=== PATIENT | female | born 1965 | race Caucasian/White ===

== ENCOUNTER → 2016-04-10 | Outpatient (CLI) | payer OTHER ==
[2016-04-10 13:11] LABS: EKG EKG PERFORMED
--- NOTE | 2016-04-10 13:36 | XR ---
EXAMINATION TYPE: XR chest 2V DATE OF EXAM: 04/10/2016 1:00 PM HISTORY: Cough and chest tightness. REFERENCE: Previous examination dated 01/07/2016. FINDINGS: The lungs are clear. Pleural spaces are clear. Heart size is normal. IMPRESSION: NORMAL CHEST.
[2016-04-10 13:43] LABS: Basophils # (A) 0.1 k/uL (0-0.2); Basophils % (A) 1 %; CH 27.9; CHCM 32.7; Eosinophils # (A) 0.3 k/uL (0-0.7); Eosinophils % (A) 3 %; HCT 38.7 % (34.0-46.0); HDW 3.07; HGB 12.7 gm/dL (11.4-16.0); Luc # (Auto) 0.15; Luc % (Auto) 2; Lymphocytes # (A) 2.2 k/uL (1.0-4.8); Lymphocytes % (A) 22 %; MCH 28.1 pg (25.0-35.0); MCHC 32.8 g/dL (31.0-37.0); MCV 85.7 fL (80.0-100.0); Mean Platelet Volume 9.2; Monocytes # (A) 0.6 k/uL (0-1.0); Monocytes % (A) 6 %; Neutrophils # (A) 6.6 k/uL (1.3-7.7); Neutrophils % (A) 67 %; RBC 4.51 m/uL (3.80-5.40); RDW 15.6 % (11.5-15.5); WBC 9.8 k/uL (3.8-10.6); WBC (Perox) 10.21
[2016-04-10 14:03] LABS: Cholesterol 168 mg/dL (<200); HDL Cholesterol 36 mg/dL (40-60); Triglycerides 367 mg/dL (<150)
[2016-04-10 14:09] LABS: Hemoglobin A1C 8.8 % (4.2-6.1)
== END | disposition home or self-care (01) ==
LOC: RADXRMAIN 12:46
PROVIDERS: ATTEND Nurse Practitioner Family
DX: R05 Cough (principal); I48.0 Paroxysmal atrial fibrillation; R00.2 Palpitations; G47.39 Other sleep apnea; H69.93 Unspecified Eustachian tube disorder, bilateral; J18.8 Other pneumonia, unspecified organism; R01.1 Cardiac murmur, unspecified
CPT/HCPCS: 36415; 71020; 80061; 83036; 84439; 84443; 84484; 85025; 93005

== ENCOUNTER → 2016-09-16 | Outpatient (CLI) | payer OTHER ==
--- NOTE | 2016-09-17 12:04 | XR ---
Left knee HISTORY: Left knee pain, fall 3 views of the left knee Comparison to previous left knee dated 10/13/2014 Bone mineralization, joint spaces and alignment are maintained. No sizable joint effusion. Minimal ma rginal spurring medial compartment suggestive of osteoarthritis. IMPRESSION: No acute fracture or dislocation.
== END ==
LOC: RADXRMAIN 18:44
PROVIDERS: ATTEND Family Medicine
DX: M25.562 Pain in left knee (principal); M25.462 Effusion, left knee

== ENCOUNTER → 2017-06-26 | Outpatient (CLI) | payer OTHER ==
[2017-06-26 12:39] LABS: HCT 30.8 % (34.0-46.0); HGB 9.9 gm/dL (11.4-16.0); Hypochromasia Marked; MCHC 32.1 g/dL (31.0-37.0); MCV 84.2 fL (80.0-100.0); Mean Platelet Volume 9.2; Platelet Count 253 k/uL (150-450); Poikilocytosis Slight; RBC 3.66 m/uL (3.80-5.40); RDW 14.5 % (11.5-15.5); WBC 7.3 k/uL (3.8-10.6)
[2017-06-26 13:01] LABS: Anion Gap 14 mmol/L; Blood Urea Nitrogen 19 mg/dL (7-17); Carbon Dioxide 24 mmol/L (22-30); Chloride 106 mmol/L (98-107); Potassium 4.4 mmol/L (3.5-5.1); Sodium 144 mmol/L (137-145)
== END | disposition home or self-care (01) ==
LOC: LABPAT 12:11
PROVIDERS: ATTEND Internal Medicine Cardiovascular Disease
DX: Z01.812 Encounter for preprocedural laboratory examination (principal); R07.9 Chest pain, unspecified
CPT/HCPCS: 36415; 80051; 82565; 84520; 85027

== ENCOUNTER 2017-07-01 10:54 | Day surgery (SDC) | payer OTHER ==
[2017-06-19 13:51] VITALS: BMI 39.9
[~2017-07-01 10:54] MED LIST: ALPRAZolam 0.25 MG TAB PO PRN; ALPRAZolam 0.5 MG TAB PO PRN; ASPIRIN 325 MG TAB PO STA; ATORVASTATIN 80 MG TAB PO STA; NITROGLYCERIN SL TABS 0.4 MG TAB SUBLINGUAL PRN; SODIUM CHLORIDE 0.9% 1,000 ML in EMPTY BAG 1 BAG IV ONE
[2017-07-01 11:31] LABS: Glucose,Whole Blood 178 mg/dL (75-99)
[2017-07-01] MEDS ORDERED: LIDOCAINE 2% INJ 20 MG/ML (20 ML MDV) ONE (12:29)
[2017-07-01] MEDS ORDERED: SODIUM CHLORIDE 0.9% 1,000 ML IV ONE (12:29)
[2017-07-01] MEDS ORDERED: MIDAZOLAM 2 MG/2 ML VIAL ONE ×2 (12:48→13:24)
[2017-07-01] MEDS ORDERED: LIDOCAINE 2% INJ 20 MG/ML SQ ONE (12:49)
[2017-07-01] MEDS: MIDAZOLAM 2 MG/2 ML VIAL IV ONE ×2 (12:49→12:51)
[2017-07-01] MEDS ORDERED: fentaNYL (PF) 50 MCG/ML 2 ML AMP IV ONE (12:49)
[2017-07-01] MEDS ORDERED: BIVALIRUDIN 250 MG in SODIUM CHLORIDE 0.9% 50 ML IV ONE (13:12)
[2017-07-01] MEDS ORDERED: BIVALIRUDIN BOLUS 250 MG/50 ML IV ONE (13:12)
--- NOTE | 2017-07-01 13:22 | P.PCN ---
Date of Procedure: 07/01/17 Preoperative Diagnosis: Crescendo angina Postoperative Diagnosis: Significant lesion involving the PDA branch. Collaterals from the right to the septal branch of the LAD which are chronic Procedure(s) Performed: Left heart catheterization without left ventriculography Description of Procedure: HISTORY: This is a 52-year-old female with history of hypertension, diabetes and hypercholesterolemia who has been experiencing exertional chest pain radiating to both arms, relieved with rest with exertional activities. Patient has to take the 4 nitroglycerin were the last 2 weeks. In view of those increasing chest pains patient is advised to have cardiac catheterization for definitive diagnosis. Patient is fully aware of the risks and benefits of the procedure. CONSENT:I have discussed the risks, benefits and alternative therapies for the above-mentioned procedure and for both sedation/analgesia as well as necessary blood product administration, if indicated, as they pertain to this patient. The patient has indicated understanding and acceptance of the risks and procedures discussed. PROCEDURE: Patient was brought to the lab in a fasting state. Patient was given some IV sedation. The right groin is infiltrated with lidocaine and right femoral artery was entered using Seldinger technique. A 6-Azeri catheter was left in place and selective coronary arteriography and left ventriculography was performed. Patient tolerated the procedure well. Femoral angiogram was performed and Angio-Seal was applied for hemostasis. No immediate complications were noted and patient was transferred to [facility] in a stable condition Conscious Sedation: Versed 2mg Fentanyl 25 g Duration 22minutes HEMODYNAMICS: The aortic pressure is 140/70. Left ventricle end-diastolic pressure is 20-22. There was no gradient across the aortic valve SELECTIVE CORONARY ARTERIOGRAPHY: LEFT MAIN: Normal length and patent. THE LEFT ANTERIOR DESCENDING CORONARY ARTERY: This is a moderate caliber vessel giving rise to good-sized diagonal branch. The LAD has ectatic changes in the midportion and also mild diffuse disease in the midportion after the origin of the diagonal branch. The diagonal branch is a good caliber vessel free of any occlusive disease. This seemed to be total occlusion of the septal branch which is being collateralized from right coronary artery. THE LEFT CIRCUMFLEX AND IS CORONARY ARTERY: This is a moderate caliber vessel and nondominant. Gives rise to small OM branch. There is mild disease in the midportion THE RIGHT CORONARY ARTERY: This is a dominant vessel giving rise to good-sized PLV and PDA branch. The PDA has 2 side branches. One of the branches has about 80% stenosis. This seemed to progression compared to the previous stent studies. LEFT VENTRICULOGRAPHY: Not performed FINAL IMPRESSION: Critical lesion involving the PDA. Total occlusion of the septal branch of the LAD which is being collateralized. This is chronic. PLAN: Stent placement of the PDA branch being done by Dr. Dennis PROGNOSIS: Fair
[2017-07-01] MEDS ORDERED: MIDAZOLAM 2 MG/2 ML VIAL IV ONE (13:25)
[2017-07-01] MEDS: NITROGLYCERIN 1000MCG/10ML SYRINGE INTRACORON ONE ×2 (13:25→13:33)
[2017-07-01] MEDS ORDERED: IOPAMIDOL-370 125ML BTL INJ ONE (13:34)
[2017-07-01] MEDS ORDERED: IOPAMIDOL-370 100ML BTL INJ ONE (13:35)
[2017-07-01] MEDS ORDERED: CLOPIDOGREL 75 MG TAB PO ONE (13:35)
[2017-07-01] MEDS ORDERED: CLOPIDOGREL 75 MG TAB ONE (13:37)
[2017-07-01] MEDS ORDERED: NITROGLYCERIN SL TABS 0.4 MG TAB SUBLINGUAL PRN ×2 (13:46→13:48)
[2017-07-01] MEDS ORDERED: ACETAMINOPHEN TAB 325 MG TAB PO PRN (13:46)
[2017-07-01] MEDS ORDERED: SUCRALFATE 1 GM TAB PO PRN (13:46)
[2017-07-01] MEDS ORDERED: FLUTICASONE 50MCG/SPRAY NASAL 16GM EA NOSTRIL PRN (13:46)
[2017-07-01] MEDS ORDERED: MAG HYDROX/AL HYDROX/SIMETH 30 ML CUP PO PRN (13:48)
[2017-07-01] MEDS ORDERED: ATROPINE SULFATE 0.1 MG/ML 10ML SYRINGE IV PRN (13:48)
[2017-07-01] MEDS ORDERED: RX INFO: IV CONTRAST WAS GIVEN 1 EACH MISC MISCELLANE PRN (13:48)
[2017-07-01] MEDS ORDERED: ZOLPIDEM 5 MG TAB PO PRN (13:48)
[2017-07-01] MEDS ORDERED: INSULIN LISPRO (For Pump) 100 UNIT/ML VIAL SQ-PUMP SCH (14:00)
[2017-07-01] MEDS ORDERED: SODIUM CHLORIDE 0.9% 1,000 ML IV SCH (14:00)
[2017-07-01 14:13] LABS: Glucose,Whole Blood 128 mg/dL (75-99)
--- NOTE | 2017-07-01 16:11 | PTCA ---
PERCUTANEOUSTRANS CORORONARY ANGIOGRAPHY DATE OF SERVICE: July 01, 2017 PERFORMING PHYSICIAN: Jered Ram MD, residential aide. PROCEDURE PERFORMED: Successful stenting of the PDA branch of the RCA using a 2.5 x 12 mm Promus drug- eluting stent with good angiographic results. INDICATION: This is a pleasant 52-year-old female patient who was experiencing intermittent episodes of chest discomfort concerning for angina. She underwent heart catheterization by Dr. Hilliard and was found to have severe disease involving the PDA branch of the RCA. We recommended proceeding with percutaneous coronary intervention. APPROACH: Right common femoral artery. COMPLICATION: None. LEVEL OF SEDATION: Moderate with sedation length of 34 minutes. PROCEDURE DESCRIPTION: After diagnostic heart catheterization was performed by Dr. Hilliard and after reviewing the angiogram, we decided to pursue with percutaneous coronary intervention. Anticoagulation was initiated using Angiomax. Subsequently I took a JR4 guide and the RCA was engaged. A Whisper wire was used to wire the RCA and the wire was advanced to the PDA branch of the RCA. After that I did PTCA ballooning using 2.0 x 12 mm balloon and subsequently I deployed a 2.5 x 12 mm Promus Premier drug-eluting stent where the stent was positioned under fluoroscopy guidance and deployed under 10 atmospheres for 20 seconds. The following angiogram showed good angiographic results and the procedure was completed without any complication. POSTPROCEDURE MANAGEMENT: 1. Dual anti-platelet therapy. 2. Risk factor modifications. 3. Follow up with the patient. MMODL / IJN: [id number] /
[2017-07-01] MEDS: traMADol 50 MG TAB PO PRN (16:30)
[2017-07-01] MEDS: PROPAFENONE 150 MG TAB PO SCH (20:08)
[2017-07-01] MEDS: METOPROLOL TARTRATE 25 MG TAB PO SCH (20:08)
[2017-07-01] MEDS: PREGABALIN 75 MG CAP PO SCH (20:08)
[2017-07-01] MEDS ORDERED: ATORVASTATIN 10 MG TAB PO SCH (21:00)
[2017-07-01 21:14] LABS: Glucose,Whole Blood 201 mg/dL (75-99)
[2017-07-01 21:27] VITALS: RESP 16
[2017-07-02] MEDS: traMADol 50 MG TAB PO PRN (03:12)
[2017-07-02 05:59] LABS: Basophils % (A) 0 %; Eosinophils # (A) 0.3 k/uL (0-0.7); Eosinophils % (A) 3 %; HCT 29.7 % (34.0-46.0); HGB 9.4 gm/dL (11.4-16.0); Hypochromasia Marked; Lymphocytes # (A) 1.6 k/uL (1.0-4.8); Lymphocytes % (A) 21 %; MCH 26.3 pg (25.0-35.0); MCHC 31.7 g/dL (31.0-37.0); MCV 82.8 fL (80.0-100.0); Mean Platelet Volume 9.6; Monocytes # (A) 0.6 k/uL (0-1.0); Monocytes % (A) 8 %; Neutrophils % (A) 66 %; Platelet Count 208 k/uL (150-450); Poikilocytosis Slight; RBC 3.59 m/uL (3.80-5.40); RDW 14.6 % (11.5-15.5); WBC 7.7 k/uL (3.8-10.6)
[2017-07-02 06:06] LABS: Anion Gap 10 mmol/L; Blood Urea Nitrogen 18 mg/dL (7-17); Calcium 8.7 mg/dL (8.4-10.2); Carbon Dioxide 26 mmol/L (22-30); Chloride 105 mmol/L (98-107); Glucose 159 mg/dL (74-99); Potassium 3.9 mmol/L (3.5-5.1); Sodium 141 mmol/L (137-145)
[2017-07-02 06:31] LABS: Glucose,Whole Blood 171 mg/dL (75-99)
[2017-07-02] MEDS ORDERED: PANTOPRAZOLE 40 MG TABLET PO SCH (07:30)
--- NOTE | 2017-07-02 08:48 | P.DS ---
Providers Date of admission: 07/01/2017 Attending physician: Cristel Hilliard Consults: 07/01/17 13:48 Consult Physician Routine Consulting Provider: [facility] Consult Reason/Comments: Post Interventional patient Do you want consulting provider notified?: Already Contacted Primary care physician: [facility] Course: This 52-year-old female with history of multiple risk factors was admitted to the hospital with the exertional angina which she spent, more frequent requiring nitroglycerin. Cardiac catheterization revealed significant disease involving the PDA. Rest of the coronary system remained stable compared to the previous study. Patient had stent placement of the PDA by Dr. Dennis. Patient tolerated the procedure well. He remained stable overnight. The groin looks soft without any hematoma. Mild ecchymosis noted. Lungs are clear. Heart is regular. Patient will continue current medical therapy. Follow-up in the office in one week. She will stay on the aspirin and Plavix. We'll going to hold Xarelto until patient is seen in the office. I may resume Xarelto in 6 weeks along with aspirin and discontinue Plavix at the time. Rest of the medication to be continued. Plan - Discharge Summary Discharge Rx Participant: No New Discharge Prescriptions: New Clopidogrel [Plavix] 75 mg PO DAILY #90 tab Nitroglycerin Sl Tabs [Nitrostat] 0.4 mg SUBLINGUAL Q5M PRN #30 tab PRN Reason: Chest Pain Continue Lisinopril 40 mg PO DAILY Pantoprazole Sodium [Protonix] 40 mg PO DAILY Ranitidine HCl 150 mg PO DAILY Sucralfate [Carafate] 1 gm PO BID PRN PRN Reason: Nausea Loratadine [Claritin] 10 mg PO DAILY Hydrochlorothiazide [Hydrodiuril] 25 mg PO DAILY Isosorbide Mononitrate ER [Imdur] 60 mg PO DAILY #90 tab Metoprolol Tartrate [Lopressor] 25 mg PO BID Fluticasone Nasal Hyder [Flonase Nasal Hyder] 2 spray EA NOSTRIL DAILY PRN PRN Reason: Congestion INSULIN LISPRO (For Pump) [humaLOG (For Pump)] 0.01 units SQ-PUMP CONTINUOUS Propafenone [Rythmol] 150 mg PO BID Aspirin 81 mg PO DAILY #30 chew Pregabalin [Lyrica] 75 mg PO BID Simvastatin [Zocor] 20 mg PO HS Discontinued traMADol HCL [Ultram] 50 mg PO QID PRN PRN Reason: Pain Nitroglycerin Sl Tabs [Nitrostat] 0.4 mg SUBLINGUAL Q5M PRN #25 tab PRN Reason: Chest Pain Acetaminophen Tab [Tylenol] 650 mg PO Q6HR PRN #0 tab PRN Reason: Fever And/ Or Pain Rivaroxaban [Xarelto] 20 mg PO DAILY Discharge Medication List Lisinopril 40 mg PO DAILY 10/02/15 [History] Pantoprazole Sodium [Protonix] 40 mg PO DAILY 10/02/15 [History] Ranitidine HCl 150 mg PO DAILY 10/02/15 [History] Sucralfate [Carafate] 1 gm PO BID PRN 11/05/15 [History] Hydrochlorothiazide [Hydrodiuril] 25 mg PO DAILY 12/15/15 [History] Loratadine [Claritin] 10 mg PO DAILY 12/15/15 [History] Isosorbide Mononitrate ER [Imdur] 60 mg PO DAILY #90 tab 12/19/15 [Rx] Fluticasone Nasal Hyder [Flonase Nasal Hyder] 2 spray EA NOSTRIL DAILY PRN 01/02 [History] Metoprolol Tartrate [Lopressor] 25 mg PO BID 01/03/16 [History] INSULIN LISPRO (For Pump) [humaLOG (For Pump)] 0.01 units SQ-PUMP CONTINUOUS [History] Propafenone [Rythmol] 150 mg PO BID 01/08/16 [History] Aspirin 81 mg PO DAILY #30 chew 01/10/16 [Rx] Pregabalin [Lyrica] 75 mg PO BID 06/19/17 [History] Simvastatin [Zocor] 20 mg PO HS 07/01/17 [History] Clopidogrel [Plavix] 75 mg PO DAILY #90 tab 07/02/17 [Rx] Nitroglycerin Sl Tabs [Nitrostat] 0.4 mg SUBLINGUAL Q5M PRN #30 tab 07/02/17 [Rx ] Follow up Appointment(s)/Referral(s): Cristel Hilliard MD [STAFF PHYSICIAN] - 1 Week Patient Instructions/Handouts: *Surgery [facility] - After Heart Catheterization - [employer] Executive Instructions, Heart Healthy Diet (DC), Coronary Intravascular Stent Placement (DC)
[2017-07-02 08:56] VITALS: BP 153/72; PULSE 98; TEMP 98.5
[2017-07-02] MEDS: METOPROLOL TARTRATE 25 MG TAB PO SCH (08:57)
[2017-07-02] MEDS: PROPAFENONE 150 MG TAB PO SCH (08:57)
[2017-07-02] MEDS ORDERED: LISINOPRIL 20 MG TAB PO SCH (09:00)
[2017-07-02] MEDS ORDERED: ASPIRIN 81 MG PO SCH (09:00)
[2017-07-02] MEDS ORDERED: ISOSORBIDE MONONITRATE ER 60 MG TAB.ER.24H PO SCH (09:00)
[2017-07-02] MEDS ORDERED: FAMOTIDINE 20 MG TAB PO SCH (09:00)
[2017-07-02] MEDS ORDERED: LORATADINE 10 MG TAB PO SCH (09:00)
[2017-07-02] MEDS ORDERED: HYDROCHLOROTHIAZIDE 25 MG TAB PO SCH (09:00)
[2017-07-02] MEDS ORDERED: CLOPIDOGREL 75 MG TAB PO SCH (09:00)
[2017-07-02] MEDS: PREGABALIN 75 MG CAP PO SCH (09:04)
== END 2017-07-02 10:30 | disposition home or self-care (01) ==
LOC: CATHCVL 10:54 → 6SEL 16:18 → CATHCVL 07-02 10:30
PROVIDERS: ATTEND Internal Medicine Cardiovascular Disease
DX: I25.118 Atherosclerotic heart disease of native coronary artery with other forms of angina pectoris (principal); I25.84 Coronary atherosclerosis due to calcified coronary lesion; I25.82 Chronic total occlusion of coronary artery; I10 Essential (primary) hypertension; Z87.891 Personal history of nicotine dependence; I48.0 Paroxysmal atrial fibrillation; E78.5 Hyperlipidemia, unspecified; E78.00 Pure hypercholesterolemia, unspecified; Z79.01 Long term (current) use of anticoagulants; Z82.49 Family history of ischemic heart disease and other diseases of the circulatory system; Z82.3 Family history of stroke; E66.9 Obesity, unspecified; Z68.41 Body mass index [BMI] 40.0-44.9, adult; E11.9 Type 2 diabetes mellitus without complications; Z79.4 Long term (current) use of insulin; Z79.82 Long term (current) use of aspirin; Z79.899 Other long term (current) drug therapy; Z88.0 Allergy status to penicillin
CPT/HCPCS: 93458; 80048; 85025; C9600; C1760 ×2; C1769 ×3; C1725; C1887; C1894; C1874; J2001; J2250; J3010; J0583; Q9967 ×2

== ENCOUNTER → 2017-10-29 | Outpatient (CLI) | payer OTHER | END | disposition home or self-care (01) | LOC: RADMRIMAIN 14:52 | PROVIDERS: ATTEND Family Medicine | DX: Z53.9 Procedure and treatment not carried out, unspecified reason (principal) ==

== ENCOUNTER → 2017-10-29 | Outpatient (CLI) | payer OTHER ==
--- NOTE | 2017-10-29 15:51 | MR ---
EXAMINATION TYPE: MR lumbar spine wo con DATE OF EXAM: 10/29/2017 COMPARISON: Plain film 01/03/2016 and prior lumbar MRI dated 10/13/2014 HISTORY: Low back pain TECHNIQUE: Multiplanar, multisequence images of the lumbar spine were acquired. L1-L2: Normal disc appearance without desiccation. No herniation, protrusion or disc bulging. No ca nal stenosis is present. Foramina are patent bilaterally. L2-L3: Normal disc appearance without desiccation. No herniation, protrusion or disc bulging. No ca nal stenosis is present. Foramina are patent bilaterally. L3-L4: Normal disc appearance without desiccation. No herniation, protrusion or disc bulging. No ca nal stenosis is present. Foramina are patent bilaterally. L4-L5: There is a minimal grade 1 anterolisthesis L4-5 with loss of disc height and signal which cont ributes to some mild foraminal encroachment. Facet arthropathy is present with hypertrophy ligamentum flavum encroaching on the lateral recesses, trefoil appearance of the thecal sac is noted, mild cent ral stenosis. L5-S1: Small central posterior disc bulge as on prior exam. No herniation, protrusion or disc bulging . No canal stenosis is present. Foramina are patent bilaterally. Lumbar segments are intact. No paraspinal masses are identified. Conus medullaris has a normal appe arance. Slight spinal curvature. IMPRESSION: Essentially stable exam. Mild degenerative disc changes described.
== END | disposition home or self-care (01) ==
LOC: RADMRIMAIN 14:57
PROVIDERS: ATTEND Psychiatry & Neurology Neurology
DX: M47.816 Spondylosis without myelopathy or radiculopathy, lumbar region (principal); Z88.0 Allergy status to penicillin
CPT/HCPCS: 72148

== ENCOUNTER → 2017-10-29 | Outpatient (CLI) | payer OTHER | END | disposition home or self-care (01) | LOC: LABWHC1 12:08 | PROVIDERS: ATTEND Family Medicine | DX: N95.0 Postmenopausal bleeding (principal) | CPT/HCPCS: 36415; 82565 ==

== ENCOUNTER → 2018-05-18 | Outpatient (CLI) | payer OTHER ==
[2018-05-18 13:50] LABS: Basophils # (A) 0.1 k/uL (0-0.2); Basophils % (A) 1 %; Eosinophils # (A) 0.2 k/uL (0-0.7); Eosinophils % (A) 3 %; HCT 38.8 % (34.0-46.0); HGB 12.1 gm/dL (11.4-16.0); Hypochromasia Slight; Lymphocytes # (A) 2.2 k/uL (1.0-4.8); Lymphocytes % (A) 24 %; MCH 25.4 pg (25.0-35.0); MCHC 31.3 g/dL (31.0-37.0); MCV 81.2 fL (80.0-100.0); Mean Platelet Volume 7.9; Monocytes # (A) 0.5 k/uL (0-1.0); Monocytes % (A) 5 %; Neutrophils # (A) 5.9 k/uL (1.3-7.7); Neutrophils % (A) 66 %; Platelet Count 251 k/uL (150-450); RBC 4.78 m/uL (3.80-5.40); RDW 15.2 % (11.5-15.5)
[2018-05-18 19:31] LABS: Albumin 4.1 g/dL (3.80-4.90); Albumin/Globulin Ratio 1.71 (1.60-3.17); Anion Gap 7.1 mmol/L (4.00-12.00); Calcium 9.3 mg/dL (8.7-10.3); Carbon Dioxide 26.9 mmol/L (21.6-31.8); Globulin 2.4 g/dL (1.6-3.3); LDL Cholesterol,Calculated 90.2 mg/dL (0.0-131.0); Potassium 3.8 mmol/L (3.5-5.5); Total Bilirubin 0.3 mg/dL (0.3-1.2); Total Protein 6.5 g/dL (6.2-8.2); VLDL Calculation 38.8 mg/dL (5.00-40.00)
== END | disposition home or self-care (01) ==
LOC: LABWHC1 12:34
PROVIDERS: ATTEND Family Medicine
DX: Z00.00 Encounter for general adult medical examination without abnormal findings (principal); D64.9 Anemia, unspecified; E11.9 Type 2 diabetes mellitus without complications; I10 Essential (primary) hypertension; E78.1 Pure hyperglyceridemia; F41.1 Generalized anxiety disorder; Z79.4 Long term (current) use of insulin; Z79.01 Long term (current) use of anticoagulants
CPT/HCPCS: 36415; 80053; 80061; 85025

== ENCOUNTER → 2019-08-04 | Outpatient (CLI) | payer OTHER ==
--- NOTE | 2019-08-04 11:47 | US ---
EXAMINATION TYPE: US venous doppler duplex UE LT DATE OF EXAM: 08/04/2019 COMPARISON: NONE CLINICAL HISTORY: R22.42 Swelling/Mass L upper extremity. EDEMA LEFT UPPER ARM, PATIENT ON XARELTO - AFIB SIDE PERFORMED: left Left Arm: No evidence of DVT Grayscale, color doppler, spectral doppler imaging performed of the deep veins of the left upper extr emity. There is normal flow, compressibility and vascular waveforms. IMPRESSION: No ultrasound evidence for acute deep or superficial venous thrombosis in the left upper extremity.
== END | disposition home or self-care (01) ==
LOC: RADUSWWP 11:01
PROVIDERS: ATTEND Nurse Practitioner Women's Health
DX: R22.42 Localized swelling, mass and lump, left lower limb (principal); Z88.0 Allergy status to penicillin; Z88.8 Allergy status to other drugs, medicaments and biological substances

== ENCOUNTER → 2019-11-04 | Day surgery (SDC) | payer OTHER ==
[~2019-11-04] MED LIST changes: -ALPRAZolam 0.25 MG TAB PO PRN; -ALPRAZolam 0.5 MG TAB PO PRN; -ASPIRIN 325 MG TAB PO STA; -ATORVASTATIN 80 MG TAB PO STA; +DEXTROSE 50% SYRINGE 50 ML IVP ONE; +GLUCAGON 1 MG/ML VIAL ONE; +LACTATED RINGERS 1,000 ML IV SCH; +LIDOCAINE 1% (10MG/ML) FOR IV START INTRADERMA ONE; -NITROGLYCERIN SL TABS 0.4 MG TAB SUBLINGUAL PRN; +PROPOFOL 10 MG/ML 20 ML VIAL IV ONE; -SODIUM CHLORIDE 0.9% 1,000 ML in EMPTY BAG 1 BAG IV ONE
[2019-11-04 09:54] LABS: Glucose,Whole Blood 75 mg/dL (75-99)
[2019-11-04 09:59] VITALS: RESP 16; TEMP 97
--- NOTE | 2019-11-04 10:10 | P.GSHP ---
History of Present Illness H&P Date: 11/04/19 Chief Complaint: GI bleed This a 54-year-old female who presents today for colonoscopy. Patient has tested positive on the cologuard test. She presents today for colonoscopy to evaluate for possible colon cancer/polyps. Past Medical History Past Medical History: Atrial Fibrillation, Chest Pain / Angina, Diabetes Mellitus, GERD/Reflux, Hyperlipidemia, Hypertension, Osteoarthritis (OA) Additional Past Medical History / Comment(s): SEE DR JOHNSON'S H&P History of Any Multi-Drug Resistant Organisms: None Reported Past Surgical History: Bariatric Surgery, Section, Cholecystectomy, Heart Catheterization With Stent, Hernia Repair, Orthopedic Surgery, Tubal Ligation Additional Past Surgical History / Comment(s): bilateral knee, gastric bypass 2010 Past Anesthesia/Blood Transfusion Reactions: No Reported Reaction Date of Last Stent Placement:: UNKNOWN Past Psychological History: No Psychological Hx Reported Smoking Status: Former smoker Past Alcohol Use History: None Reported Additional Past Alcohol Use History / Comment(s): QUIT SMOKING 2006, SMOKED 1PPD FROM AGE 14 (1979) Past Drug Use History: None Reported - Past Family History Mother Family Medical History: Diabetes Mellitus, Hypertension Additional Family Medical History / Comment(s): Gastric bypass Father Family Medical History: Coronary Artery Disease (CAD) Medications and Allergies Home Medications Medication Instructions Recorded Confirmed Type Pantoprazole Sodium [Protonix] 40 mg PO QAM 10/02/15 11/04/19 History Sucralfate [Carafate] 1 gm PO BID PRN 11/05/15 11/04/19 History hydroCHLOROthiazide [Hydrodiuril] 25 mg PO QAM 12/15/15 11/04/19 History Fluticasone Nasal [place] [Flonase 2 spray EA NOSTRIL DAILY PRN 01/03/16 11/04/19 History Nasal [place]] Metoprolol Tartrate [Lopressor] 25 mg PO BID 01/03/16 11/04/19 History Pregabalin [Lyrica] 150 mg PO BID 06/19/17 11/04/19 History Nitroglycerin Sl Tabs [Nitrostat] 0.4 mg SUBLINGUAL Q5M PRN #30 tab 07/02/17 11/04/19 Rx Amiodarone [Cordarone] 200 mg PO QAM 11/02/19 11/04/19 History Aspirin 81 mg PO QAM 11/02/19 11/02/19 History Atorvastatin [Lipitor] 20 mg PO QAM 11/02/19 11/02/19 History Cetirizine HCl 10 mg PO QAM 11/02/19 11/04/19 History Citalopram Hydrobromide 20 mg PO QAM 11/02/19 11/02/19 History [Citalopram HBr] Furosemide [Lasix] 20 mg PO QAM 11/02/19 11/04/19 History Insulin Lispro [Admelog] 1 pump SQ CONTINUOUS 11/02/19 11/04/19 History Multivitamins, Thera [Multivitamin 1 tab PO DAILY 11/02/19 11/02/19 History (formulary)] Potassium Chloride [Klor-Con 20] 20 meq PO QAM 11/02/19 11/04/19 History Rivaroxaban [Xarelto] 20 mg PO QAM 11/02/19 11/02/19 History Sacubitril/Valsartan [Entresto 24 1 tab PO 1100 11/02/19 11/04/19 History mg-26 mg Tablet] Semaglutide [Ozempic] 1 dose SQ AC-LUNCH 11/02/19 11/04/19 History Allergies Allergy/AdvReac Type Severity Reaction Status Date / Time amoxicillin trihydrate Allergy Swelling Verified 11/02/19 14:49 [From Augmentin] Penicillins Allergy Swelling Verified 11/02/19 14:49 potassium clavulanate Allergy Swelling Verified 11/02/19 14:49 [From Augmentin] ibuprofen AdvReac INDIGESTION Verified 11/02/19 14:50 Surgical - Exam Vital Signs Temp Pulse Resp BP Pulse Ox 97.0 F L 72 16 123/58 93 L 11/04/19 09:57 11/04/19 09:57 11/04/19 09:57 11/04/19 09:57 11/04/19 09:57 - General well developed, well nourished, no distress - Eyes PERRL - ENT normal pinna - Neck no masses - Respiratory normal expansion - Cardiovascular Rhythm: regular - Abdomen Abdomen: soft, non tender Assessment and Plan Assessment: GI bleed, positive coloGuard We'll perform colonoscopy.
[2019-11-04 10:20] LABS: Glucose,Whole Blood 140 mg/dL (75-99)
--- NOTE | 2019-11-04 10:28 | P.OP ---
Date of Procedure: 11/04/19 Preoperative Diagnosis: GI bleed Postoperative Diagnosis: Colon polyp Diverticulosis Procedure(s) Performed: Colonoscopy Anesthesia: MAC Surgeon: Richard Teran Pathology: other (Colon polyp) Condition: stable Disposition: PACU Description of Procedure: Patient's placed on the endoscopy table in the lateral position. She received IV sedation. Digital rectal exam was performed which revealed a few internal hemorrhoids. Flexible colonoscope was then placed patient anus passed throughout the entire colon. The ileocecal valve sutures. The cecum, ascending transverse colon appeared normal. In the descending colon there is a small polyps is removed the forcep. There is also diverticular changes noted. Scope was brought back the sigmoid colon and more diverticular changes were noted. Scope summer back into the rectum and this appeared normal. Scope was withdrawn for patient.
[2019-11-04 10:35] LABS: Glucose,Whole Blood 154 mg/dL (75-99)
[2019-11-04 10:50] VITALS: BP 129/77; PULSE 74
== END ==
LOC: ORWHC2ENDO 09:22
PROVIDERS: ATTEND Surgery
DX: K63.5 Polyp of colon (principal); K57.30 Diverticulosis of large intestine without perforation or abscess without bleeding; K64.8 Other hemorrhoids; K92.2 Gastrointestinal hemorrhage, unspecified; I48.91 Unspecified atrial fibrillation; E11.9 Type 2 diabetes mellitus without complications; K21.9 Gastro-esophageal reflux disease without esophagitis; E78.5 Hyperlipidemia, unspecified; I25.10 Atherosclerotic heart disease of native coronary artery without angina pectoris; I10 Essential (primary) hypertension; M19.90 Unspecified osteoarthritis, unspecified site; Z98.84 Bariatric surgery status; Z90.49 Acquired absence of other specified parts of digestive tract; Z95.5 Presence of coronary angioplasty implant and graft; Z98.51 Tubal ligation status; Z98.890 Other specified postprocedural states; Z87.891 Personal history of nicotine dependence; Z83.3 Family history of diabetes mellitus; Z82.49 Family history of ischemic heart disease and other diseases of the circulatory system; Z79.01 Long term (current) use of anticoagulants; Z79.82 Long term (current) use of aspirin; Z79.4 Long term (current) use of insulin; Z79.899 Other long term (current) drug therapy; Z88.6 Allergy status to analgesic agent; Z88.0 Allergy status to penicillin
CPT/HCPCS: 88305; 45380; J1610; J2704; 45385

== ENCOUNTER 2023-12-23 05:53 | Observation (INO) | payer MEDICARE, OTHER ==
[2023-12-23] MEDS: IV FLUID CONTINUATION 1,000 ML IV ONE (06:22)
[2023-12-23] MEDS: SODIUM CHLORIDE 0.9% 1,000 ML IV SCH (06:22)
[2023-12-23 06:32] LABS: Glucose,Whole Blood 140 mg/dL (70-110)
[2023-12-23 06:33] LABS: Basophils % (A) 0 %; Eosinophils # (A) 0.3 k/uL (0-0.7); Eosinophils % (A) 3 %; HCT 40.8 % (34.0-46.0); HGB 12.9 gm/dL (11.4-16.0); Hypochromasia Moderate; Lymphocytes # (A) 1.7 k/uL (1.0-4.8); Lymphocytes % (A) 20 %; MCH 26.9 pg (25.0-35.0); MCHC 31.7 g/dL (31.0-37.0); MCV 84.8 fL (80.0-100.0); Mean Platelet Volume 9.2; Monocytes # (A) 0.5 k/uL (0-1.0); Monocytes % (A) 6 %; Neutrophils # (A) 5.8 k/uL (1.3-7.7); Neutrophils % (A) 69 %; Platelet Count 278 k/uL (150-450); RBC 4.81 m/uL (3.80-5.40); RDW 15.2 % (11.5-15.5); WBC 8.5 k/uL (3.8-10.6)
[2023-12-23 06:54] LABS: ALT 18 U/L (4-34); AST 21 U/L (14-36); African American GFR (CKD) 86 (>60 ml/min/1.73 sqM); Albumin 3.8 g/dL (3.5-5.0); Alkaline Phosphatase 131 U/L (38-126); Anion Gap 8 mmol/L; Blood Urea Nitrogen 11 mg/dL (7-17); Calcium 9.1 mg/dL (8.4-10.2); Carbon Dioxide 29 mmol/L (22-30); Chloride 106 mmol/L (98-107); Glucose 146 mg/dL (74-99); Non-African American GFR(CKD) 74 (>60 ml/min/1.73 sqM); Potassium 3.7 mmol/L (3.5-5.1); Sodium 143 mmol/L (137-145); Total Bilirubin 0.5 mg/dL (0.2-1.3); Total Protein 6.8 g/dL (6.3-8.2)
[2023-12-23] MEDS ORDERED: HEPARIN SODIUM,PORCINE 5,000 UNIT/ML 1 ML VIAL ONE (07:27)
[2023-12-23] MEDS ORDERED: fentaNYL (PF) 50 MCG/ML 2 ML AMP ONE (07:27)
[2023-12-23] MEDS ORDERED: MIDAZOLAM 2 MG/2 ML VIAL ONE (07:27)
[2023-12-23] MEDS ORDERED: PHENYLEPHRINE-0.9% NACL SYG 1,000 MCG/10 ML SYRINGE ONE (07:27)
[2023-12-23] MEDS ORDERED: ETOMIDATE 2 MG/ML 10 ML VIAL ONE (07:27)
[2023-12-23] MEDS ORDERED: HEPARIN SODIUM,PORCINE 10,000 UNIT/ML 1 ML VIAL ONE (07:27)
[2023-12-23] MEDS ORDERED: PHENYLEPHRINE 10 MG/ML VIAL ONE (07:27)
[2023-12-23] MEDS ORDERED: LIDOCAINE 1% INJ 10MG/ML (20 ML MDV) ONE (07:27)
[2023-12-23] MEDS ORDERED: SUCCINYLCHOLINE CHLORIDE 200 MG/10 ML VIAL IV ONE (07:27)
[2023-12-23] MEDS: HEPARIN SODIUM,PORCINE 10,000 UNIT in SODIUM CHLORIDE 0.9% 1,000 ML IRRIGATION ONE (07:29)
[2023-12-23] MEDS: HEPARIN SODIUM,PORCINE (1 ML) 2,500 UNIT in SODIUM CHLORIDE 0.9% 250 ML IRRIGATION ONE (07:29)
[2023-12-23] MEDS: HEPARIN SODIUM (1,000 UNIT/ML) 1,000 UNIT in SODIUM CHLORIDE 0.9% 1,000 ML IRRIGATION ONE (07:29)
[2023-12-23] MEDS: HEPARIN SOD,PORK IN 0.45% NACL 25,000 UNIT in 0.45% NACL 1 250ML.BAG IV ONE (07:30)
[2023-12-23] MEDS ORDERED: SUCRALFATE 1 GM TAB PO PRN (08:11)
--- NOTE | 2023-12-23 08:11 | P.HPCAR ---
History of Present Illness This is Dr. Cline dictating an H/P on this patient The patient was interviewed and examined IMPRESSION / ASSESSMENT: Symptomatic recurrent atrial fibrillation with RVR Associated shortness of breath but worse during episodes of atrial fibrillation with heart failure symptoms Cardiomyopathy with a left ventricular ejection fraction of 33% by cardiac MRI, dilated LV, global, without any abnormal late gadolinium enhancement Coronary artery disease status post stenting of the diagonal vessel in 2016 History of atrial tachycardia with RVR, long RP Underlying left bundle branch block with wide QRS Moderate aortic regurgitation Type 2 diabetes, dyslipidemia, congestive heart failure class II PLAN: Proceed with A-fib ablation with PVI and left atrial septal ablation Diagnosis EP study did not induce any atrial tachycardia/mapping and ablation thereafter accordingly Continue anticoagulation with Xarelto 20 mg p.o. daily Heparin dose calculated for procedure, weight-based HPI Patient has had recurrent episodes of symptomatic atrial fibrillation with RVR with worsening of heart failure status. She has underlying known cardiomyopathy with an ejection fraction between 30-35% She denies any fever chills cough expectoration orthopnea No recent chest discomfort ROS: No fever chills or rigors, no cough, phlegm or expectoration, no nausea, vomiting or diarrhea, no hematuria, dysuria, no musculoskeletal complaints, no strokes or seizures, no skin lesions. 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 Hx Covid 04/01, hospitalized with SOB/low O2. Chronic back pain. Degenerative Disc Disease. Neuropathy in bilateral feet and hands. Patient states "fall risk, loses balance". see Dr Cline H&P History of Any Multi-Drug Resistant Organisms: None Reported Past Surgical History: Bariatric Surgery, Section, Cholecystectomy, Heart Catheterization With Stent, Hernia Repair, Orthopedic Surgery, Tubal Ligation Additional Past Surgical History / Comment(s): Bilateral knee surgery, gastric bypass 2010, 1 cardiac stent, Section X4. egd. colonoscopy Past Anesthesia/Blood Transfusion Reactions: Family History of Problems w/ Anesthesia, Motion Sickness Additional Past Anesthesia/Blood Transfusion Reaction / Comment(s): Mom woke up during surgery. Date of Last Stent Placement:: 2015. Smoking Status: Former smoker - Past Family History Mother Family Medical History: Diabetes Mellitus, Hypertension Additional Family Medical History / Comment(s): Gastric bypass. Father Family Medical History: Coronary Artery Disease (CAD) Sister(s) Family Medical History: Cancer Additional Family Medical History / Comment(s): Cervical cancer. Physical Examination Vital Signs Temp Pulse Resp BP Pulse Ox 12/23/23 06:36 97.5 F L 64 16 134/61 96 Intake and Output 12/22/23 12/23/23 12/23/23 22:59 06:59 14:59 Intake Total 50 0 Balance 50 0 Intake: IV 50 0 Other: Weight 106.6 kg Results 12/23/23 06:29 12/23/23 06:29 Cardiac Enzymes 12/23/23 Range/Units 06:29 AST 21 (14-36) U/L CBC 12/23/23 Range/Units 06:29 WBC 8.5 (3.8-10.6) k/uL RBC 4.81 (3.80-5.40) m/uL Hgb 12.9 (11.4-16.0) gm/dL Hct 40.8 (34.0-46.0) % Plt Count 278 (150-450) k/uL Comprehensive Metabolic Panel 12/23/23 Range/Units 06:29 Sodium 143 (137-145) mmol/L Potassium 3.7 (3.5-5.1) mmol/L Chloride 106 (98-107) mmol/L Carbon Dioxide 29 (22-30) mmol/L BUN 11 (7-17) mg/dL Creatinine 0.87 (0.52-1.04) mg/dL Glucose 146 H (74-99) mg/dL Calcium 9.1 (8.4-10.2) mg/dL AST 21 (14-36) U/L ALT 18 (4-34) U/L Alkaline Phosphatase 131 H (38-126) U/L Total Protein 6.8 (6.3-8.2) g/dL Albumin 3.8 (3.5-5.0) g/dL Current Medications Generic Name Dose Route Start Last Admin Trade Name Freq PRN Reason Stop Dose Admin Sodium Chloride 1,000 mls @ 20 mls/hr 12/23/23 05:55 12/23/23 06:22 Saline 0.9% IV 01/22/24 05:54 20 mls/hr .Q24H LAVINIA Administration Intake and Output 12/22/23 12/23/23 12/23/23 22:59 06:59 14:59 Intake Total 50 0 Balance 50 0 Intake: IV 50 0 Other: Weight 106.6 kg 12/23/23 06:29 12/23/23 06:29
[2023-12-23] MEDS: LIDOCAINE 1% INJ 10MG/ML (20 ML MDV) SQ ONE (08:17)
[2023-12-23] MEDS: IOPAMIDOL-370 100ML BTL INJ ONE (11:23)
[2023-12-23 11:27] LABS: Glucose,Whole Blood 132 mg/dL (70-110)
[2023-12-23] MEDS: ACETAMINOPHEN IV (For NPO) 1,000 MG in EMPTY BAG 1 BAG IVPB STA (13:44)
[2023-12-23] MEDS: ASPIRIN 81 MG PO SCH (14:04)
[2023-12-23] MEDS: DAPAGLIFLOZIN PROPANEDIOL 5 MG TABLET PO SCH (14:24)
[2023-12-23] MEDS: FUROSEMIDE 40 MG TAB PO SCH (14:25)
--- NOTE | 2023-12-23 15:25 | P.CARDCATH ---
Description of Procedure: PROCEDURES PERFORMED: Bilateral coronary angiography, ultrasound guided arterial access INDICATION: multiple V. fib episodes occurring during ablation of unclear etiology CONSENT:I have discussed the risks, benefits and alternative therapies for the above-mentioned procedure and for both sedation/analgesia as well as necessary blood product administration, if indicated, as they pertain to this patient. The patient has indicated understanding and acceptance of the risks and procedures discussed. PROCEDURE: After the risks, benefits and alternatives of the above mentioned procedure explained in detail with the patient, informed consent was obtained. Patient was taken to the catheterization lab and prepped and draped in usual fashion. Ultrasound guidance was used to assess for arterial access with radial artery appearing diminutive. 1% lidocaine was used to anesthetize the right femoral artery. A 6-Turkmen sheath was placed in the right femoral artery using modified Seldinger technique and ultrasound guidance. Left coronary angiography was performed with a 6-Turkmen JL 4.0 catheter and right coronary angiography was performed with a 5-Turkmen AR 2 catheter in various views. The right femoral angiogram showed adequate anatomy for closure and therefore a 6Fr Angioseal was placed with hemostasis achieved. The patient tolerated the procedure well. Patient was transported back to the post catheterization holding area in stable condition. General Sedation: Patient was monitored by anesthesia, see separate report HEMODYNAMICS: Ao: 122/81 SELECTIVE CORONARY ARTERIOGRAPHY: LEFT MAIN: The left main is a large caliber vessel which bifurcates into the LAD and circumflex. There is no significant stenosis. LEFT ANTERIOR DESCENDING CORONARY ARTERY: LAD is a large caliber vessel which wraps around just short of the apex. There appears to be a mid LAD stent which is patent and otherwise 20-30% proximal LAD stenosis and 20% diffuse diagonal 1 stenosis. At the bifurcation of diagonal branch there is a 50% LAD stenosis LEFT CIRCUMFLEX CORONARY ARTERY: Left circumflex is a moderate caliber vessel which gives off 2 small caliber OM1 and OM 2 branches with diffuse 40-50% stenosis of both OM1 and OM 2. RIGHT CORONARY ARTERY: The right coronary artery is a large caliber vessel which gives off a PDA and PLV branch and is the dominant vessel. There is mild 20-30% approximately mid RCA stenosis which appears unchanged from prior. There are right to left collaterals which appeared to be going to a jailed septal branch.. FINAL IMPRESSION: 1. CAD as described above including 20-30% proximal LAD, 50% mid LAD, 40-50% small caliber OM1 and OM 2 and 20-30% RCA stenosis. PLAN: 1. Aggressive risk factor modification per most recent ACC/AHA guidelines. 2. Follow-up in the office in 1-2 weeks.
[2023-12-23 16:39] LABS: Glucose,Whole Blood 207 mg/dL (70-110)
[2023-12-23 19:54] LABS: Glucose,Whole Blood 200 mg/dL (70-110)
[2023-12-23] MEDS: SACUBITRIL/VALSARTAN 24 MG-26 MG TABLET PO SCH (19:59)
[2023-12-23] MEDS: ESCITALOPRAM 10 MG TAB PO SCH (19:59)
[2023-12-23] MEDS: traMADol 50 MG TAB PO PRN (19:59)
[2023-12-23] MEDS: METOPROLOL TARTRATE 50 MG TAB PO SCH (19:59)
[2023-12-23] MEDS: ATORVASTATIN 20 MG TAB PO SCH (19:59)
[2023-12-23] MEDS: PREGABALIN 100 MG CAP PO SCH (19:59)
[2023-12-23] MEDS ORDERED: METOPROLOL TARTRATE 50 MG TAB PO SCH (21:00)
[2023-12-23] MEDS: NYSTATIN 100,000 UNIT/GM POWD 15 GM TOPICAL SCH (23:13)
[2023-12-24 05:50] LABS: Glucose,Whole Blood 165 mg/dL (70-110)
[2023-12-24 08:26] LABS: Basophils % (A) 0 %; Eosinophils # (A) 0.2 k/uL (0-0.7); Eosinophils % (A) 1 %; HCT 38.7 % (34.0-46.0); HGB 11.9 gm/dL (11.4-16.0); Hypochromasia Marked; Lymphocytes # (A) 1.1 k/uL (1.0-4.8); Lymphocytes % (A) 10 %; MCH 27.1 pg (25.0-35.0); MCHC 30.8 g/dL (31.0-37.0); MCV 87.9 fL (80.0-100.0); Mean Platelet Volume 8.5; Monocytes # (A) 0.9 k/uL (0-1.0); Monocytes % (A) 7 %; Neutrophils # (A) 9.6 k/uL (1.3-7.7); Neutrophils % (A) 80 %; Platelet Count 236 k/uL (150-450); RBC 4.41 m/uL (3.80-5.40); RDW 15.6 % (11.5-15.5)
--- NOTE | 2023-12-24 08:26 | XR ---
EXAMINATION TYPE: XR chest 2V DATE OF EXAM: 12/24/2023 COMPARISON: 06/06/2018 TECHNIQUE: PA and lateral views submitted. HISTORY: Shortness of breath FINDINGS: Limited inspiration with patchy left perihilar infiltrate. Coarsened interstitium with no pleural eff usion or pneumothorax. Mild cardiomegaly. Osseous structures intact. IMPRESSION: 1. A patchy left perihilar infiltrate. Coarsened interstitium is similar to prior exam may reflect re duced inspiration rather than interstitial pneumonitis or mild venous congestion. Correlate clinicall y for confirmation. [facility], , 12/24/2023 8:23 AM
[2023-12-24] MEDS: METOPROLOL TARTRATE 50 MG TAB PO SCH (08:31)
[2023-12-24] MEDS: RIVAROXABAN 20 MG TAB PO SCH (08:31)
[2023-12-24] MEDS: SPIRONOLACTONE 25 MG TAB PO SCH (08:32)
[2023-12-24 08:48] LABS: African American GFR (CKD) >90 (>60 ml/min/1.73 sqM); Anion Gap 6 mmol/L; Blood Urea Nitrogen 12 mg/dL (7-17); Calcium 8.6 mg/dL (8.4-10.2); Carbon Dioxide 28 mmol/L (22-30); Chloride 103 mmol/L (98-107); Glucose 271 mg/dL (74-99); Non-African American GFR(CKD) 80 (>60 ml/min/1.73 sqM); Sodium 137 mmol/L (137-145)
[2023-12-24 08:54] LABS: NT-Pro-B-Type Natriuretic Pept 945 pg/mL
[2023-12-24] MEDS ORDERED: POTASSIUM CHLORIDE ER 20 MEQ TAB.ER PO SCH (09:00)
[2023-12-24] MEDS: COLCHICINE 0.6 MG EACH PO SCH (09:37)
[2023-12-24 11:32] LABS: Glucose,Whole Blood 172 mg/dL (70-110)
--- NOTE | 2023-12-24 12:17 | P.PN ---
Subjective HISTORY OF PRESENT ILLNESS: This is a 58-year-old female who underwent elective atrial fibrillation ablation yesterday with Dr. Cline. Apparently the patient was having episodes of recurrent ventricular fibrillation during ablation. Dr. Henderson performed cardiac catheterization revealing 20 to 30% stenosis of proximal LAD, 50% mid LAD, 40 to 50% small caliber OM1 and OM 2 and 20 to 30% RCA stenosis. Patient examined this morning at the bedside. Patient states that she is not feeling well this morning. She reports chest discomfort that radiates into her back. She states the pain is not worse with deep inspiration or chest wall palpation. She also reports feeling short of breath and states that she is having sputum production this morning. Patient is 94% on room air. WBC 12.0 up from 8.5 yesterday. EKG this morning reveals sinus mechanism with left bundle branch block. Chest x-ray reveals patchy left perihilar infiltrate. PHYSICAL EXAM: VITAL SIGNS: Reviewed. GENERAL: Well-developed in no acute distress. NECK: Supple. No JVD or thyromegaly LUNGS: Respirations even and unlabored. Lungs essentially clear to auscultation bilaterally. HEART: Regular rate and rhythm. S1 and S2 heard. EXTREMITIES: Normal range of motion. No clubbing or cyanosis. Peripheral pulses intact. No lower extremity edema ASSESSMENT: Symptomatic recurrent paroxysmal atrial fibrillation with RVR Recurrent VFib during A-fib ablation, s/p cath revealing 20 to 30% stenosis of proximal LAD, 50% mid LAD, 40 to 50% small caliber OM1 and OM 2 and 20 to 30% RCA stenosis Possible left perihilar infiltrate per chest x-ray Mild leukocytosis Coronary artery disease with previous stenting of the diagonal, 2015 Dilated cardiomyopathy, ejection fraction 33% by cardiac MRI History of atrial tachycardia Known left bundle branch block Moderate aortic regurgitation Congestive heart failure with reduced EF, currently euvolemic Hyperlipidemia Diabetes Obesity: BMI 35.4 PLAN: Obtain 2D echo to assess cardiac structure and function Begin colchicine 0.6 mg twice a day Metoprolol increased to 100 mg in the morning and 50 mg at night Continue additional cardiac medications Consult pulmonary for evaluation Further recommendations pending patient course Nurse practitioner note has been reviewed by physician. Signing provider agrees with the documented findings, assessment, and plan of care documented by [employer] as a scribe. Objective - Vital Signs Vital signs: Vital Signs Temp 99.5 F 12/24/23 08:24 Pulse 90 12/24/23 08:24 Resp 18 12/24/23 08:24 BP 124/69 12/24/23 08:24 Pulse Ox 94 L 12/24/23 08:24 FiO2 Intake & Output 12/23/23 12/24/23 12/24/23 18:59 06:59 18:59 Intake Total 981 250 Balance 981 250 Weight 106.6 kg 96.5 kg Intake: IV 831 10 Invasive Line 1 10 Oral 150 240 Other: Voiding Method Bedpan Bedpan Toilet # Voids 1 1 1 - Labs CBC & Chem 7: 12/24/23 08:09 12/24/23 08:09 Labs: Abnormal Lab Results - Last 24 Hours (Table) 12/23/23 12/23/23 12/24/23 Range/Units 16:37 19:52 05:49 WBC (3.8-10.6) k/uL MCHC (31.0-37.0) g/dL RDW (11.5-15.5) % Neutrophils # (1.3-7.7) k/uL Glucose (74-99) mg/dL POC Glucose (mg/dL) 207 H 200 H 165 H (70-110) mg/dL 12/24/23 12/24/23 12/24/23 Range/Units 08:09 08:09 11:30 WBC 12.0 H (3.8-10.6) k/uL MCHC 30.8 L (31.0-37.0) g/dL RDW 15.6 H (11.5-15.5) % Neutrophils # 9.6 H (1.3-7.7) k/uL Glucose 271 H (74-99) mg/dL POC Glucose (mg/dL) 172 H (70-110) mg/dL
--- NOTE | 2023-12-24 12:49 | CA ---
Transthoracic Echo Report Name: Robyn Buckner Age: 58 Gender: F : 1965 Exam Date: 12/24/2023 10:33 Exam Location: [facility] Ht (in): 65 Wt (lb): 212 Ordering Physician: Jeanne Buck Attending/Referring Phys: [id number], [place] Director Of [employer] Debora Zuleta RDCS Procedure CPT: Indications: LV function, CP, SOB Cardiac Hx: Technical Quality: Technically difficult study Contrast 1: Definity Total Dose (mL): 2 Contrast 2: Total Dose (mL): MEASUREMENTS (Male / Female) Normal Values 2D ECHO LV Diastolic Diameter PLAX 6.4 cm 4.2 - 5.9 / 3.9 - 5.3 cm LV Systolic Diameter PLAX 6.4 cm IVS Diastolic Thickness 0.9 cm 0.6 - 1.0 / 0.6 - 0.9 cm LVPW Diastolic Thickness 1.2 cm 0.6 - 1.0 / 0.6 - 0.9 cm LV Relative Wall Thickness 0.3 LVOT Diameter 2.2 cm LV Diastolic Volume MOD BP 244.3 cm??? 67 - 155 / 56 - 104 cm??? LV Systolic Volume MOD BP 173.8 cm??? 22 - 58 / 19 - 49 cm??? LV Ejection Fraction MOD BP 28.9 % >= 55 % LV Cardiac Index MOD BP 2437.5 cm???/min???m??? LV Diastolic Volume MOD 4C 253.5 cm??? LV Systolic Volume MOD 4C 178.9 cm??? LV Ejection Fraction MOD 4C 29.4 % LV Cardiac Index MOD 4C 2579.4 cm???/min???m??? LV Diastolic Length 4C 9.2 cm LV Systolic Length 4C 8.4 cm LV Diastolic Volume MOD 2C 227.5 cm??? LV Systolic Volume MOD 2C 167.8 cm??? LV Ejection Fraction MOD 2C 26.2 % LV Cardiac Index MOD 2C 2060.8 cm???/min???m??? LV Diastolic Length 2C 8.8 cm LV Systolic Length 2C 8.4 cm LA Volume 58.3 cm??? 18 - 58 / 22 - 52 cm??? LA Volume Index 27.2 cm???/m??? 16 - 28 cm???/m??? Ascending Aorta Diameter 3.8 cm M-MODE LV Diastolic Diameter MM 8.2 cm 4.2 - 5.9 / 3.9 - 5.3 cm LV Systolic Diameter MM 7.0 cm LV Cardiac Index MM Gonzaloich 3669.2 cm???/min???m??? IVS Diastolic Thickness MM 0.9 cm 0.6 - 1.0 / 0.6 - 0.9 cm LVPW Diastolic Thickness MM 1.2 cm 0.6 - 1.0 / 0.6 - 0.9 cm LV Relative Wall Thickness MM 0.3 0.24 - 0.42 / 0.22 - 0.42 LV Mass Index MM 212.5 g/m??? 49 - 115 / 43 - 95 g/m??? DOPPLER AV Peak Velocity 168.1 cm/s AV Peak Gradient 11.3 mmHg AV Mean Velocity 124.6 cm/s AV Mean Gradient 6.7 mmHg AV Velocity Time Integral 33.1 cm LVOT Peak Velocity 133.5 cm/s LVOT Peak Gradient 7.1 mmHg LVOT Velocity Time Integral 24.6 cm LVOT Stroke Volume 97.6 cm??? LVOT Stroke Volume Index 48.2 ml/m??? LVOT Cardiac Index 3375.6 cm???/min???m??? AV Area Cont Eq vti 3.0 cm??? AV Area Cont Eq pk 3.1 cm??? MV Area PHT 4.4 cm??? Mitral E Point Velocity 79.3 cm/s Mitral A Point Velocity 57.0 cm/s Mitral E to A Ratio 1.4 MV Deceleration Time 170.9 ms TR Peak Velocity 248.5 cm/s TR Peak Gradient 24.7 mmHg Right Atrial Pressure 15.0 mmHg Pulmonary Artery Systolic Pressu 39.7 mmHg Right Ventricular Systolic Press 39.7 mmHg PV Peak Velocity 96.5 cm/s PV Peak Gradient 3.7 mmHg FINDINGS Left Ventricle Left ventricular ejection fraction is estimated at 20 %. Severely increased left ventricular mass. Mildly increased posterior wall thickness. Severely decreased fractional shortening. Severely decreased midwall fractional shortening. Severely increased left ventricular diastolic diameter. Severely increased left ventricular diastolic volume. Severely increased left ventricular systolic volume. Severely decreased left ventricular ejection fraction with regional variability. Right Ventricle Right ventricular dilatation with normal function. Mild pulmonary hypertension. Right Atrium Normal right atrial size. Left Atrium Mildly increased left atrial volume. Mitral Valve Structurally normal mitral valve. No evidence for mitral valve prolapse. No mitral stenosis. Mild mitral regurgitation. Aortic Valve Aortic valve not well visualized. No aortic valve stenosis or regurgitation. Tricuspid Valve Structurally normal tricuspid valve. No tricuspid stenosis. Mild tricuspid regurgitation. Pulmonic Valve Pulmonic valve not well visualized. No pulmonic stenosis. No pulmonic regurgitation. Pericardium No pericardial effusion. Aorta Normal size aortic root and proximal ascending aorta. CONCLUSIONS Left ventricular ejection fraction 20% Mildly increased left ventricular wall thickness Moderate to severe left ventricular dilation Mild mitral regurgitation Mild tricuspid regurgitation No pericardial effusion Previewed by: Dr. Josh Henderson DO (Electronically Signed) Final Date: 24 December 2023 12:48
[2023-12-24] MEDS: ACETAMINOPHEN TAB 325 MG TAB PO PRN (14:08)
--- NOTE | 2023-12-24 16:14 | P.CNPUL ---
History of Present Illness Consult date: 12/24/23 Reason for consult: dyspnea History of present illness: I am seeing this patient for chest pain and shortness of breath that evolved following a cardiac procedure. The patient is known to have coronary artery disease, cardiomyopathy, and atrial fibrillation. The patient was admitted for atrial fibrillation and left atrial septal ablation. During the diagnostic EP studies, the patient did not induce any atrial tachycardia and mapping and a blation was performed. However, postop, the patient developed some shortness of breath overnight and the patient is currently having pleuritic chest pain over the anterior chest radiating to her shoulder blades bilaterally. Noted the patient has a baseline left-sided ejection fraction of 33% and a cardiac MRI showing global LV dysfunction and she also has an underlying coronary artery disease and a cardiac catheterization that was done on 12/23/2023 showed 2030% proximal LAD, 50% mid LAD, 40 to 50% OM1 and OM 2 in 20 to 30% RCA stenosis. No intervention was done and the patient was asked to continue medical treatment. No previous history of DVT or pulmonary embolism and the patient is already on anticoagulation with Xarelto. The patient is known to have valvular heart disease including a moderate degree of aortic regurgitation and mitral regurgitation. Chest x-ray that was done based on ongoing shortness of breath showed some mild pulm vascular congestion. Repeat echocardiogram was done this morning indicating further impairment of LV function which is down to 20% in addition to severe LV dysfunction and reduced ejection fraction, there was mild mitral regurgitation, aortic valve was not adequately visualized. Noted her current proBNP level is in the order of 945. Rest of the electrolytes are all within normal limits with a white cell count of 12 with a hemoglobin of 11.9 and platelet count of 236. She is morbidly obese with a BMI of 35.4. She is a non- smoker. No cough. No sputum production. She was restarted on Lasix 40 mg p.o. twice a day. Her medication has been modified and Aldactone was also added a dose of 25 mg p.o. daily. She is already on metoprolol 50 mg vitamin 100 mg in the morning in addition to Xarelto 20 mg p.o. daily. Colchicine was added suspecting a component of pericarditis. The patient is currently on room air oxygen. No major edema lower extremities bilaterally. Review of Systems Constitutional: Reports weight gain Eyes: denies as per HPI, denies blurred vision, denies bulging eye, denies decreased vision, denies diplopia, denies discharge, denies dry eye, denies irritation, denies itching, denies pain, denies photophobia, denies loss of peripheral vision, denies loss of vision, denies tunnel vision/blind spots Ears: deny: decreased hearing, ear discharge, earache, tinnitus Ears, nose, mouth and throat: Reports as per HPI Breasts: absent: as per HPI, change in shape, gynecomastia, masses, nipple discharge, pain, skin changes, swelling Cardiovascular: Reports chest pain (Pleuritic in nature), Reports decreased exercise tolerance, Reports dyspnea on exertion Respiratory: Reports dyspnea Gastrointestinal: Reports as per HPI Genitourinary: Reports as per HPI Menstruation: Reports as per HPI Musculoskeletal: Reports as per HPI Musculoskeletal: absent: ankle pain, ankle stiffness, ankle swelling, as per HPI, elbow pain, elbow stiffness, elbow swelling, foot pain, foot stiffness, foot swelling, hand pain, hand stiffness, hand swelling, hip pain, hip stiffness, hip swelling, knee pain, knee stiffness, knee swelling, shoulder pain, shoulder stiffness, shoulder swelling, wrist pain, wrist stiffness, wrist swelling Integumentary: Reports as per HPI Neurological: Reports as per HPI Psychiatric: Reports as per HPI Endocrine: Reports as per HPI Hematologic/Lymphatic: Reports as per HPI Past Medical History Past Medical History: Atrial Fibrillation, Coronary Artery Disease (CAD), Chest Pain / Angina, Heart Failure, COPD, Diabetes Mellitus, Fibromyalgia, GERD/Reflux, Hyperlipidemia, Hypertension, Musculoskeletal Disorder, Neurologic Disorder, Osteoarthritis (OA), Pneumonia Additional Past Medical History / Comment(s): Hx Covid 02/27, had pneumonia, hospitalized for 6 days. Hx Covid 04/01, hospitalized. Chronic back pain. Degenerative Disc Disease. Neuropathy in bilateral feet and hands. Patient st ates "fall risk, loses balance". Obesity History of Any Multi-Drug Resistant Organisms: None Reported Past Surgical History: Bariatric Surgery, Section, Cholecystectomy, Heart Catheterization With Stent, Hernia Repair, Orthopedic Surgery, Tubal Ligation Additional Past Surgical History / Comment(s): Bilateral knee surgery, gastric bypass 2011, 1 cardiac stent, Section X4. egd. colonoscopy Past Anesthesia/Blood Transfusion Reactions: Family History of Problems w/ Anesthesia, Motion Sickness Additional Past Anesthesia/Blood Transfusion Reaction / Comment(s): Mom woke up during surgery. Date of Last Stent Placement:: 2015. Past Psychological History: Depression Smoking Status: Former smoker Past Alcohol Use History: Rare Additional Past Alcohol Use History / Comment(s): QUIT SMOKING IN 2006, SMOKED 1PPD FROM AGE 14 (1979). Past Drug Use History: None Reported - Past Family History Mother Family Medical History: Diabetes Mellitus, Hypertension Additional Family Medical History / Comment(s): Gastric bypass. Father Family Medical History: Coronary Artery Disease (CAD) Sister(s) Family Medical History: Cancer Additional Family Medical History / Comment(s): Cervical cancer. Medications and Allergies Home Medications Medication Instructions Recorded Confirmed Type Pantoprazole Sodium [Protonix] 40 mg PO BID 10/02/15 12/23/23 History Sucralfate [Carafate] 1 gm PO DAILY PRN 11/05/15 12/23/23 History Fluticasone Nasal Clements [Flonase 2 spray EA NOSTRIL DAILY PRN 01/03/16 12/18/23 History Nasal Clements] Metoprolol Tartrate [Lopressor] 50 mg PO BID 01/03/16 12/23/23 History Nitroglycerin Sl Tabs [Nitrostat] 0.4 mg SUBLINGUAL Q5M PRN #30 tab 07/02/17 12/18/23 Rx Aspirin 81 mg PO QAM 11/02/19 12/23/23 History Atorvastatin [Lipitor] 20 mg PO HS 11/02/19 12/23/23 History Cetirizine HCl 10 mg PO QAM 11/02/19 12/23/23 History Furosemide [Lasix] 40 mg PO BID 11/02/19 12/23/23 History Multivitamins, Thera [Multivitamin 1 tab PO DAILY 11/02/19 12/23/23 History (formulary)] Potassium Chloride [Klor-Con 20] 20 meq PO QAM 11/02/19 12/23/23 History Rivaroxaban [Xarelto] 20 mg PO QAM 11/02/19 12/23/23 History Sacubitril/Valsartan [Entresto 24 2 tab PO BID 11/02/19 12/23/23 History mg-26 mg Tablet] Escitalopram [Lexapro] 10 mg PO BID 05/09/22 12/23/23 History Pregabalin [Lyrica] 100 mg PO BID 05/09/22 12/23/23 History Acetaminophen [Tylenol] 325 mg PO DIRECTED PRN 12/18/23 12/18/23 History Empagliflozin [Jardiance] 10 mg PO DAILY 12/18/23 12/23/23 History Insulin Aspart (For Pump) [NovoLOG 0 unit SQ-PUMP DIRECTED 12/18/23 12/23/23 History (For Pump)] Unk Isosorbide 20 mg PO DAILY 12/18/23 12/23/23 History Unk Nystatin Cram 1 applic TOPICAL DIRECTED PRN 12/18/23 12/23/23 History Unk Vitamin D3 1 tab PO WEEKLY 12/18/23 12/23/23 History methocarbamoL 750 mg PO Q4H PRN 12/18/23 12/18/23 History traMADol HCL 50 mg PO Q6H PRN 12/18/23 12/23/23 History Allergies Allergy/AdvReac Type Severity Reaction Status Date / Time amoxicillin trihydrate Allergy swelling Verified 12/18/23 15:25 [From Augmentin] of mouth Penicillins Allergy Swelling Verified 05/14/22 06:10 potassium clavulanate Allergy Swelling Verified 12/18/23 15:25 [From Augmentin] mouth ibuprofen AdvReac INDIGESTION Verified 05/14/22 06:10 Physical Exam Vitals: Vital Signs Temp Pulse Resp BP BP Pulse Ox 12/24/23 08:24 99.5 F 90 18 124/69 94 L 12/24/23 04:00 74 18 135/76 99 12/24/23 00:10 74 18 123/77 96 12/23/23 20:00 98.8 F 78 18 145/75 95 12/23/23 15:38 85 16 131/77 95 12/23/23 14:11 97.6 F 74 18 135/67 95 12/23/23 13:35 70 16 137/63 95 12/23/23 13:05 68 16 142/64 93 L 12/23/23 12:36 68 14 142/60 95 12/23/23 12:00 6 L 16 150/79 94 L 12/23/23 11:45 67 16 148/76 100 12/23/23 11:30 65 16 150/79 100 12/23/23 11:17 97.9 F 68 14 115/84 100 Intake and Output 12/23/23 12/24/23 12/24/23 22:59 06:59 14:59 Intake Total 150 250 Balance 150 250 Intake: IV 10 Invasive Line 1 10 Oral 150 240 Other: Voiding Method Bedpan Bedpan Toilet # Voids 1 1 1 Weight 106.6 kg 96.5 kg The patient appeared well nourished and normally developed. Vital signs as documented. Head exam is unremarkable. No scleral icterus or corneal arcus noted. Neck is without jugular venous distension, thyromegaly, or carotid bruits. Carotid upstrokes are brisk bilaterally. Lungs are clear to auscultation and percussion. Diminished breath sound lung base bilaterally along with some faint crackles Cardiac exam reveals the PMI to be normally sized and situated. Rhythm is regular. First and second heart sounds normal. A systolic ejection murmur over the left lateral sternal border and the cardiac rhythm is sinus, no rubs or gallops. Abdominal exam reveals normal bowel sounds, no masses, no organomegaly and no aortic enlargement. Extremities are nonedematous and both femoral and pedal pulses are normal. Examination of the skin revealed no evidence of significant rashes, suspicious appearing nevi or other concerning lesions. Neurologically, the patient is awake and alert and the patient does not have any focal neurological deficit. Cranial nerves are essentially intact. Results - Laboratory Findings CBC and BMP: 12/24/23 08:09 12/24/23 08:09 Abnormal lab findings: Abnormal Labs 12/23/23 12/23/23 12/23/23 06:21 06:29 11:25 WBC MCHC RDW Neutrophils # Glucose 146 H POC Glucose (mg/dL) 140 H 132 H Alkaline Phosphatase 131 H 12/23/23 12/23/23 12/24/23 16:37 19:52 05:49 WBC MCHC RDW Neutrophils # Glucose POC Glucose (mg/dL) 207 H 200 H 165 H Alkaline Phosphatase 12/24/23 12/24/23 08:09 08:09 WBC 12.0 H MCHC 30.8 L RDW 15.6 H Neutrophils # 9.6 H Glucose 271 H POC Glucose (mg/dL) Alkaline Phosphatase - Diagnostic Findings Chest x-ray: image reviewed Assessment and Plan Plan: Pleuritic chest pain, EKG is not showing any acute ischemic changes and the patient's cardiac rhythm is sinus. proBNP level is mildly elevated and the ches t x-ray showing some mild pulm vascular congestion. Pulmonary embolism is highly doubtful and is not consistent with the clinical scenario. The patient is not showing any signs of hypoxemia. Patient was started on colchicine suspecting a component of pericarditis. Atrial fibrillation status post mapping/ablation and the current rhythm is sinus Severe cardiomyopathy with impaired LV function with an ejection fraction of 20% Moderate aortic regurgitation Coronary artery disease nonocclusive, cardiac catheterization showing 20 to 30% proximal LAD, 50% mid LAD, 40 to 50% OM1 and OM 2 and 20 to 30% RCA stenosis and the patient is being subjected to aggressive risk factor modification regarding coronary artery disease. Obesity Shortness of breath with mild pulm vessel congestion, most consistent with CHF and the patient was started on diuretics and the patient is currently on Lasix 40 mg p.o. twice a day. History of atrial tachycardia Left bundle branch block pattern Diabetes mellitus type 2 Osteoarthritis Previous history of COVID-19 infection/pneumonia x 2 Peripheral neuropathy Degenerative disc disease Plan Oxygenation stable and the patient's pulse ox 98% room air oxygen Continue anticoagulation with Xarelto Restart diuretics and the patient is currently on Lasix 40 mg p.o. twice a day monitor the pain and the respiratory status Continue metoprolol 100 mg p.o. daily, Entresto 24/26 mg 1 tablet daily, Aldactone 25 mg p.o. daily patient is also on Farxiga Continue statins with Lipitor 20 mg p.o. daily Tramadol for pain control Outpatient sleep study Outpatient pulmonary function test no indication for pneumonia. Pulmonary embolism is highly doubtful. Repeat echocardiogram was noted.
[2023-12-24 16:38] LABS: Glucose,Whole Blood 155 mg/dL (70-110)
[2023-12-24 20:14] LABS: Glucose,Whole Blood 171 mg/dL (70-110)
[2023-12-25 06:06] LABS: Glucose,Whole Blood 185 mg/dL (70-110)
[2023-12-25 07:08] VITALS: BP 107/64; PULSE 72; RESP 21; TEMP 98.2
[2023-12-25] MEDS: FUROSEMIDE 40 MG TAB PO SCH (08:26)
--- NOTE | 2023-12-25 10:41 | P.PN ---
Subjective Progress Note Date: 12/25/23 I am seeing this patient for chest pain and shortness of breath that evolved following a cardiac procedure. The patient is known to have coronary artery disease, cardiomyopathy, and atrial fibrillation. The patient was admitted for atrial fibrillation and left atrial septal ablation. During the diagnostic EP studies, the patient did not induce any atrial tachycardia and mapping and ablation was performed. However, postop, the patient developed some shortness of breath overnight and the patient is currently having pleuritic chest pain over the anterior chest radiating to her shoulder blades bilaterally. Noted the patient has a baseline left-sided ejection fraction of 33% and a cardiac MRI porfirio wing global LV dysfunction and she also has an underlying coronary artery disease and a cardiac catheterization that was done on 12/23/2023 showed 2030% proximal LAD, 50% mid LAD, 40 to 50% OM1 and OM 2 in 20 to 30% RCA stenosis. No intervention was done and the patient was asked to continue medical treatment. No previous history of DVT or pulmonary embolism and the patient is already on anticoagulation with Xarelto. The patient is known to have valvular heart disease including a moderate degree of aortic regurgitation and mitral regurgitation. Chest x-ray that was done based on ongoing shortness of breath showed some mild pulm vascular congestion. Repeat echocardiogram was done this morning indicating further impairment of LV function which is down to 20% in addition to severe LV dysfunction and reduced ejection fraction, there was mild mitral regurgitation, aortic valve was not adequately visualized. Noted her current proBNP level is in the order of 945. Rest of the electrolytes are all within normal limits with a white cell count of 12 with a hemoglobin of 11.9 and platelet count of 236. She is morbidly obese with a BMI of 35.4. She is a non- smoker. No cough. No sputum production. She was restarted on Lasix 40 mg p.o. twice a day. Her medication has been modified and Aldactone was also added a dose of 25 mg p.o. daily. She is already on metoprolol 50 mg vitamin 100 mg in the morning in addition to Xarelto 20 mg p.o. daily. Colchicine was added suspecting a component of pericarditis. The patient is currently on room air oxygen. No major edema lower extremities bilaterally. 12/25/2023, the patient is feeling better. The chest pain has subsided signif icantly and she does not have any significant shortness of breath. She is on room air oxygen. Home medications have been resumed. No significant cardiac arrhythmias. As noted, the patient is left-ventricular ejection fraction is down to 20% and the patient may benefit from an AICD. She will also need an outpatient sleep study to be done on an outpatient basis. Overall condition is good and the patient is stable for now. Breathing is extremely comfortable. Objective - Vital Signs Vital signs: Vital Signs Temp 98.2 F 12/25/23 07:06 Pulse 72 12/25/23 08:00 Resp 21 12/25/23 08:00 BP 107/64 12/25/23 07:06 Pulse Ox 95 12/25/23 07:06 FiO2 Intake & Output 12/24/23 12/25/23 12/25/23 18:59 06:59 18:59 Intake Total 730 358 Balance 730 358 Weight 107 kg Intake: IV 10 Invasive Line 1 10 Oral 720 358 Other: Voiding Method Toilet Toilet Toilet # Voids 3 1 1 - Exam The patient appeared well nourished and normally developed. Vital signs as documented. Head exam is unremarkable. No scleral icterus or corneal arcus noted. Neck is without jugular venous distension, thyromegaly, or carotid bruits. Carotid upstrokes are brisk bilaterally. Lungs are clear to auscultation and percussion. Diminished breath sound lung base bilaterally along with some faint crackles Cardiac exam reveals the PMI to be normally sized and situated. Rhythm is regular. First and second heart sounds normal. A systolic ejection murmur over the left lateral sternal border and the cardiac rhythm is sinus, no rubs or gallops. Abdominal exam reveals normal bowel sounds, no masses, no organomegaly and no aortic enlargement. Extremities are nonedematous and both femoral and pedal pulses are normal. Examination of the skin revealed no evidence of significant rashes, suspicious appearing nevi or other concerning lesions. Neurologically, the patient is awake and alert and the patient does not have any focal neurological deficit. Cranial nerves are essentially intact. - Labs CBC & Chem 7: 12/24/23 08:09 12/24/23 08:09 Labs: Abnormal Lab Results - Last 24 Hours (Table) 12/24/23 12/24/23 12/24/23 Range/Units 11:30 16:36 20:12 POC Glucose (mg/dL) 172 H 155 H 171 H (70-110) mg/dL 12/25/23 Range/Units 06:04 POC Glucose (mg/dL) 185 H (70-110) mg/dL Assessment and Plan Plan: Pleuritic chest pain, EKG is not showing any acute ischemic changes and the patient's cardiac rhythm is sinus. proBNP level is mildly elevated and the chest x-ray showing some mild pulm vascular congestion. Pulmonary embolism is highly doubtful and is not consistent with the clinical scenario. The patient is not showing any signs of hypoxemia. Patient was started on colchicine suspecting a component of pericarditis.On today's evaluation of 12/25/2023, the chest pain is subsided and the patient has no significant shortness of breath. Atrial fibrillation status post mapping/ablation and the current rhythm is sinus Severe cardiomyopathy with impaired LV function with an ejection fraction of 20% Moderate aortic regurgitation Coronary artery disease nonocclusive, cardiac catheterization showing 20 to 30% proximal LAD, 50% mid LAD, 40 to 50% OM1 and OM 2 and 20 to 30% RCA stenosis and the patient is being subjected to aggressive risk factor modification regarding coronary artery disease. Obesity Shortness of breath with mild pulm vessel congestion, most consistent with CHF and the patient was started on diuretics and the patient is currently on Lasix 40 mg p.o. twice a day. History of atrial tachycardia Left bundle branch block pattern Diabetes mellitus type 2 Osteoarthritis Previous history of COVID-19 infection/pneumonia x 2 Peripheral neuropathy Degenerative disc disease Plan Oxygenation stable and the patient's pulse ox 98% room air oxygen Continue anticoagulation with Xarelto Continue Lasix 40 mg p.o. twice a day monitor the pain and the respiratory status continue Continue metoprolol 100 mg p.o. daily, Entresto 24/26 mg 1 tablet daily, Aldactone 25 mg p.o. daily patient is also on Farxiga Continue statins with Lipitor 20 mg p.o. daily Tramadol for pain control Outpatient sleep study Outpatient pulmonary function test no indication for pneumonia. Pulmonary embolism is highly doubtful. Repeat echocardiogram was noted. Would like to go home today to be followed up on outpatient basis. May need an AICD. Will need a sleep study to be done on outpatient basis.
--- NOTE | 2023-12-25 11:44 | P.DS ---
Providers Date of admission: 12/23/23 05:54 Attending physician: Titus Cline Consults: 12/24/23 08:42 Consult Physician Routine Consulting Provider: Justus Conn Consult Reason/Comments: SOB, possible infiltrate Do you want consulting provider notified?: Yes Primary care physician: [facility] Course: Patient is doing well this morning Minimal chest discomfort. Minimal sore throat Denies any dizziness or lightheadedness No groin swelling On examination pulse rate in the 70s sinus mechanism, blood pressure 127/73 mmHg Clear lungs no rhonchi no crackles Normal heart sounds no murmurs Groins of healed well no hematoma Dressing was removed Impression A-fib ablation, successful VF arrest with ablation of the upper branch/tributary of the right inferior pulmonary vein specifically Follow-up coronary angiogram in the EP lab did not reveal any occlusive disease in the RCA Patient remained stable thereafter and was monitored for 48 hours Being discharged today and will follow-up with Dr. 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 Plan - Discharge Summary Discharge Rx Participant: No New Discharge Prescriptions: New Colchicine [Colcrys] 0.6 mg PO BID #28 each Metoprolol Tartrate [Lopressor] 100 mg PO DAILY #60 tab Metoprolol Tartrate [Lopressor] 50 mg PO HS #30 tab Continue Pantoprazole Sodium [Protonix] 40 mg PO BID Sucralfate [Carafate] 1 gm PO DAILY PRN PRN Reason: Nausea Fluticasone Nasal [place] [Flonase Nasal [place]] 2 spray EA NOSTRIL DAILY PRN PRN Reason: Congestion Nitroglycerin Sl Tabs [Nitrostat] 0.4 mg SUBLINGUAL Q5M PRN #30 tab PRN Reason: Chest Pain Sacubitril/Valsartan [Entresto 24 mg-26 mg Tablet] 2 tab PO BID Aspirin 81 mg PO QAM Atorvastatin [Lipitor] 20 mg PO HS Multivitamins, Thera [Multivitamin (formulary)] 1 tab PO DAILY Furosemide [Lasix] 40 mg PO BID Cetirizine HCl 10 mg PO QAM Rivaroxaban [Xarelto] 20 mg PO QAM Potassium Chloride [Klor-Con 20] 20 meq PO QAM Escitalopram [Lexapro] 10 mg PO BID methocarbamoL 750 mg PO Q4H PRN PRN Reason: muscle relaxant Empagliflozin [Jardiance] 10 mg PO DAILY traMADol HCL 50 mg PO Q6H PRN PRN Reason: Pain Unk Vitamin D3 1 tab PO WEEKLY Unk Isosorbide 20 mg PO DAILY Pregabalin [Lyrica] 100 mg PO BID Insulin Aspart (For Pump) [NovoLOG (For Pump)] 0 unit SQ-PUMP DIRECTED Unk Nystatin Cram 1 applic TOPICAL DIRECTED PRN PRN Reason: Rash Acetaminophen [Tylenol] 325 mg PO DIRECTED PRN PRN Reason: Pain Discontinued Metoprolol Tartrate [Lopressor] 50 mg PO BID Discharge Medication List Pantoprazole Sodium [Protonix] 40 mg PO BID 10/02/15 [History] Sucralfate [Carafate] 1 gm PO DAILY PRN 11/05/15 [History] Fluticasone Nasal [place] [Flonase Nasal [place]] 2 spray EA NOSTRIL DAILY PRN 1 [History] Nitroglycerin Sl Tabs [Nitrostat] 0.4 mg SUBLINGUAL Q5M PRN #30 tab 07/02/17 [Rx] Aspirin 81 mg PO QAM 11/02/19 [History] Atorvastatin [Lipitor] 20 mg PO HS 11/02/19 [History] Cetirizine HCl 10 mg PO QAM 11/02/19 [History] Furosemide [Lasix] 40 mg PO BID 11/02/19 [History] Multivitamins, Thera [Multivitamin (formulary)] 1 tab PO DAILY 11/02/19 [History] Potassium Chloride [Klor-Con 20] 20 meq PO QAM 11/02/19 [History] Rivaroxaban [Xarelto] 20 mg PO QAM 11/02/19 [History] Sacubitril/Valsartan [Entresto 24 mg-26 mg Tablet] 2 tab PO BID 11/02/19 [History] Escitalopram [Lexapro] 10 mg PO BID 05/09/22 [History] Pregabalin [Lyrica] 100 mg PO BID 05/09/22 [History] Acetaminophen [Tylenol] 325 mg PO DIRECTED PRN 12/18/23 [History] Empagliflozin [Jardiance] 10 mg PO DAILY 12/18/23 [History] Insulin Aspart (For Pump) [NovoLOG (For Pump)] 0 unit SQ-PUMP DIRECTED 12/18/23 [History] Unk Isosorbide 20 mg PO DAILY 12/18/23 [History] Unk Nystatin Cram 1 applic TOPICAL DIRECTED PRN 12/18/23 [History] Unk Vitamin D3 1 tab PO WEEKLY 12/18/23 [History] methocarbamoL 750 mg PO Q4H PRN 12/18/23 [History] traMADol HCL 50 mg PO Q6H PRN 12/18/23 [History] Colchicine [Colcrys] 0.6 mg PO BID #28 each 12/25/23 [Rx] Metoprolol Tartrate [Lopressor] 50 mg PO HS #30 tab 12/25/23 [Rx] Metoprolol Tartrate [Lopressor] 100 mg PO DAILY #60 tab 12/25/23 [Rx] Follow up Appointment(s)/Referral(s): Josh Henderson DO [STAFF PHYSICIAN] - 01/02/24 8:15 am Justus Conn MD [STAFF PHYSICIAN] - 01/30/24 10:30 am Patient Instructions/Handouts: Cardiac Ablation (DC) Activity/Diet/Wound Care/Special Instructions: Post EP study - Ablation instructions 1. Keep access sites dry for 2 days. 2. No heavy lifting or straining for 2 days. 3. Avoid bending the hips repeatedly for 2 days. 4. You may go up and down stairs slowly 5. If you have had an ablation for atrial fibrillation or atrial flutter and a re on a blood thinner, do not stop the blood thinner even temporarily for 3 months post ablation Call if the following is noted 1. Bleeding, increasing swelling or pain at the access sites. 2. Increasing chest discomfort, especially upon taking a deep breath. 3. Increasing shortness of breath, at rest or with exertion. 4. Undue cough / phlegm 5. Difficulty or pain while swallowing. 6. Pain or change in color in the extremities. 7. Fever, chills, rigors. 8. Increasing headache or neurologic symptoms. 9. Dizziness, fainting, palpitations Discharge Disposition: HOME SELF-CARE
--- NOTE | 2023-12-25 15:09 | P.EPPROC ---
- EP Procedure Note Electrophysiology Procedure Note: PROCEDURE A. fib ablation with PVI and left atrial septal ablation DIAGNOSIS Paroxysmal atrial fibrillation, symptomatic, refractory to therapy Underlying cardiomyopathy Global ejection fraction 33% by cardiac MRI RESULT No left atrial appendage mass seen on intracardiac echo, thickened pericardium without effusion Successful A. fib ablation/pulmonary vein isolation of all veins using cryo- ablation Successful left atrial septal ablation Complete entrance block in all 4 veins confirmed No evidence for phrenic nerve injury Esophageal deflection YES / NO Defibrillation for ventricular fibrillation. During cryoablation of the upper branch of the right inferior pulmonary vein specifically (not cryoablation of the lower branch of the right inferior pulmonary vein or the right superior pulmonary vein), patient went into VT degenerating into ventricular fibrillation, successfully defibrillated. This finding was very specific for the upper branch of the right inferior pulmonary vein, and reproducible Coronary angiography performed in the EP lab showed no occlusion of the right coronary artery. The conus branch of the right coronary artery appeared to be the closest artery to the cryoballoon and this position and stimulation with cryoenergy may have resulted in VT followed by VF at the specific location ablation of the inferior tributary of the right inferior pulmonary vein, right superior pulmonary vein and both left-sided veins proceeded uneventfully. Dr. Henderson performed coronary angiography in the EP lab. No new occlusive disease PROCEDURE DETAILS Written informed consent prior to procedure. Patient brought to the EP lab. General anesthesia given. Heparin administered. A city maintained above 300 seconds Both groins prepped and draped per protocol and venous sheaths placed. Esophagus intubated, circa catheter for temperature monitoring an endoscope for possible esophageal deflection. Phrenic nerve monitoring performed. Esophageal temperature monitoring performed. Esophageal deflection performed if circa catheter overlapping with the balloon or circa temperature less than 27.5C Intracardiac echocardiography performed. Pericardium evaluated. Left atrial appendage evaluated. Left atrium evaluated along with pulmonary veins Transseptal catheterization performed under fluoroscopic guidance and intracardiac echo guidance Cryoablation sheath exchanged, balloon catheter along with achieve catheter placed in the left atrium. Pulmonary veins isolated in the following sequence: Left superior pulmonary vein followed by left inferior pulmonary vein, followed by right inferior pulmonary vein and lastly right superior pulmonary vein. Phrenic nerve stimulation along with capture thresholds within the SVC and right superior pulmonary vein to identify the phrenic nerve proximity to the cryo- balloon. Pulmonary veins isolated and confirmed with entrance and exit block. Phrenic nerve integrity confirmed at the end of the procedure Ablation of the left atrial septum performed with cannulation of the superior branch of the right inferior to achieve ablation of the posterior septum of the left atrium. Ablation of electrograms confirmed VT followed by VF was induced during cryoablation repeatedly at this location. Successful defibrillation. Patient stable Diagnostic catheters for the high right atrium, His bundle, coronary sinus placed. LA and RA pressures recorded RA pressure: 23/12/12 LA pressure: 27/01/14 Diagnostic EP study with coronary sinus pacing and recording Baseline measurements: Sinus cycle length 1065 ms, GA interval 165 ms, QRS 172 ms There is no recovery times were 1093 1280 and 1207 ms AV node Wenckebach block 620 ms AV node ERP 670/580 ms Venous sheaths were removed and hemostasis assured with a closure device. Patient extubated and transferred to recovery Increase procedural time During ablation multiple attempts had to be made to move the esophagus a safe distance of the from the pulmonary vein draining cryoablation, to avoid excessive thermal cooling of the esophagus This took extra time and effort to keep the esophagus a safe distance away from the cryoablation balloon. Multiple attempts needed for successful cryoablation isolation of the LA septum. Frequent short cryo lesions given and complete ablation of this area performed PROCEDURES PERFORMED Diagnostic EP study CS pacing and recording Left and right transseptal catheterization Catheter the mapping of the tachycardia Intracardiac echocardiography Pulmonary vein isolation with transseptal and comprehensive EPS, 35034 Extended procedure duration Linear ablation, left atrium, +02310 Defibrillation for VF
== END 2023-12-25 10:57 | disposition home or self-care (01) ==
LOC: CATHEP 05:53 → 3SCARD 05:54 → 6NMEDSUR 10:49 → CATHEP 10:49 → 3SCARD 10:49
PROVIDERS: ADMIT Internal Medicine Clinical Cardiac Electrophysiology; ATTEND Internal Medicine Clinical Cardiac Electrophysiology
DX: I48.0 Paroxysmal atrial fibrillation (principal); D72.829 Elevated white blood cell count, unspecified; I25.10 Atherosclerotic heart disease of native coronary artery without angina pectoris; E11.65 Type 2 diabetes mellitus with hyperglycemia; E66.01 Morbid (severe) obesity due to excess calories; E78.5 Hyperlipidemia, unspecified; I08.0 Rheumatic disorders of both mitral and aortic valves; I11.0 Hypertensive heart disease with heart failure; I42.0 Dilated cardiomyopathy; I44.7 Left bundle-branch block, unspecified; I50.20 Unspecified systolic (congestive) heart failure; J44.9 Chronic obstructive pulmonary disease, unspecified; M79.7 Fibromyalgia; Z68.35 Body mass index [BMI] 35.0-35.9, adult; Z79.01 Long term (current) use of anticoagulants; Z79.4 Long term (current) use of insulin; Z79.82 Long term (current) use of aspirin; Z79.84 Long term (current) use of oral hypoglycemic drugs; Z79.899 Other long term (current) drug therapy; Z86.16 Personal history of COVID-19; Z87.891 Personal history of nicotine dependence; Z91.81 History of falling; Z95.5 Presence of coronary angioplasty implant and graft; Z96.41 Presence of insulin pump (external) (internal); Z98.84 Bariatric surgery status
CPT/HCPCS: 93306; 93454; 93656; 93657; 86900; 86901; 83880; 80053; 80048; 84443; 85025 ×2; 86850; 71046; G0378 ×2; C1760 ×2; C1769 ×2; C1894 ×2; C1730 ×2; C1759; C1733; C1766; J2250; J0330; J1644 ×4; J2003; J3010; Q9957; J0131; Q9967; J2371 ×2; 93653

== ENCOUNTER 2024-01-31 00:04 | Emergency (ER) | payer MEDICARE, OTHER ==
--- NOTE | 2024-01-31 01:00 | ED ---
Extremity Problem HPI - General Chief complaint: Extremity Problem,Nontraumatic Stated complaint: Lft Hand Complications post op Time Seen by Provider: 01/31/24 00:59 Source: patient, RN notes reviewed, old records reviewed Mode of arrival: ambulatory Limitations: no limitations - History of Present Illness Initial comments: 58 year old female presenting to the ER for evaluation of hand pain. Patient underwent carpal tunnel release on 01-27-[address] Wu. She states since then she has noticed significant bruising and pain to her left hand. She denies any new injuries or traumas. She does report she is on Xarelto for atrial fibrillation. Patient states she was seen at [facility] prior to arrival and had x-rays completed. X-ray report reviewed at that time shows soft tissue swelling with no acute evidence of fracture. - Related Data Home Medications Medication Instructions Recorded Confirmed Pantoprazole Sodium [Protonix] 40 mg PO BID 10/02/15 12/23/23 Sucralfate [Carafate] 1 gm PO DAILY PRN 11/05/15 12/23/23 Fluticasone Nasal [place] [Flonase 2 spray EA NOSTRIL DAILY PRN 01/03/16 12/18/23 Nasal [place]] Aspirin 81 mg PO QAM 11/02/19 12/23/23 Atorvastatin [Lipitor] 20 mg PO HS 11/02/19 12/23/23 Cetirizine HCl 10 mg PO QAM 11/02/19 12/23/23 Furosemide [Lasix] 40 mg PO BID 11/02/19 12/23/23 Multivitamins, Thera [Multivitamin 1 tab PO DAILY 11/02/19 12/23/23 (formulary)] Potassium Chloride [Klor-Con 20] 20 meq PO QAM 11/02/19 12/23/23 Rivaroxaban [Xarelto] 20 mg PO QAM 11/02/19 12/23/23 Sacubitril/Valsartan [Entresto 24 2 tab PO BID 11/02/19 12/23/23 mg-26 mg Tablet] Escitalopram [Lexapro] 10 mg PO BID 05/09/22 12/23/23 Pregabalin [Lyrica] 100 mg PO BID 05/09/22 12/23/23 Acetaminophen [Tylenol] 325 mg PO DIRECTED PRN 12/18/23 12/18/23 Empagliflozin [Jardiance] 10 mg PO DAILY 12/18/23 12/23/23 Insulin Aspart (For Pump) [NovoLOG 0 unit SQ-PUMP DIRECTED 12/18/23 12/23/23 (For Pump)] Unk Isosorbide 20 mg PO DAILY 12/18/23 12/23/23 Unk Nystatin Cram 1 applic TOPICAL DIRECTED PRN 12/18/23 12/23/23 Unk Vitamin D3 1 tab PO WEEKLY 12/18/23 12/23/23 methocarbamoL 750 mg PO Q4H PRN 12/18/23 12/18/23 traMADol HCL 50 mg PO Q6H PRN 12/18/23 12/23/23 Previous Rx's Medication Instructions Recorded Nitroglycerin Sl Tabs [Nitrostat] 0.4 mg SUBLINGUAL Q5M PRN #30 tab 07/02/17 Colchicine [Colcrys] 0.6 mg PO BID #28 each 12/25/23 Metoprolol Tartrate [Lopressor] 50 mg PO HS #30 tab 12/25/23 Metoprolol Tartrate [Lopressor] 100 mg PO DAILY #60 tab 12/25/23 Allergies Allergy/AdvReac Type Severity Reaction Status Date / Time amoxicillin trihydrate Allergy swelling Verified 01/31/24 00:09 [From Augmentin] of mouth Penicillins Allergy Swelling Verified 01/31/24 00:09 potassium clavulanate Allergy Swelling Verified 01/31/24 00:09 [From Augmentin] mouth ibuprofen AdvReac INDIGESTION Verified 01/31/24 00:09 Review of Systems ROS Statement: Those systems with pertinent positive or pertinent negative responses have been documented in the HPI. ROS Other: All systems not noted in ROS Statement are negative. Past Medical History Past Medical History: Atrial Fibrillation, Coronary Artery Disease (CAD), Chest Pain / Angina, Heart Failure, COPD, Diabetes Mellitus, Fibromyalgia, GERD/Reflux, Hyperlipidemia, Hypertension, Musculoskeletal Disorder, Neurologic Disorder, Osteoarthritis (OA), Pneumonia Additional Past Medical History / Comment(s): Hx Covid 02/27, had pneumonia, hospitalized for 6 days. Hx Covid 04/01, hospitalized. Chronic back pain. Degenerative Disc Disease. Neuropathy in bilateral feet and hands. Patient states "fall risk, loses balance". Obesity History of Any Multi-Drug Resistant Organisms: None Reported Past Surgical History: Bariatric Surgery, Section, Cholecystectomy, Heart Catheterization With Stent, Hernia Repair, Orthopedic Surgery, Tubal Ligation Additional Past Surgical History / Comment(s): Bilateral knee surgery, gastric bypass 2011, 1 cardiac stent, Section X4. egd. colonoscopy, semaj carpal tunnel Past Anesthesia/Blood Transfusion Reactions: Family History of Problems w/ Anesthesia, Motion Sickness Additional Past Anesthesia/Blood Transfusion Reaction / Comment(s): Mom woke up during surgery. Date of Last Stent Placement:: 2015. Past Psychological History: Depression Smoking Status: Former smoker Past Alcohol Use History: Rare Past Drug Use History: None Reported - Past Family History Mother Family Medical History: Diabetes Mellitus, Hypertension Additional Family Medical History / Comment(s): Gastric bypass. Father Family Medical History: Coronary Artery Disease (CAD) Sister(s) Family Medical History: Cancer Additional Family Medical History / Comment(s): Cervical cancer. General Exam Limitations: no limitations General appearance: alert, in no apparent distress Respiratory exam: Present: normal lung sounds bilaterally. Absent: respiratory distress, wheezes, rales, rhonchi, stridor Cardiovascular Exam: Present: regular rate, normal rhythm, normal heart sounds. Absent: systolic murmur, diastolic murmur, rubs, gallop, clicks Extremities exam: Present: normal inspection, full ROM, normal capillary refill, other (Healing 1 cm surgical incision over anterior aspect of left wrist. There is surrounding edema and multiple stages of healing bruising noted. Bruising travels approximately 3/4 up patient's forearm. soft compartments). Absent: tenderness, pedal edema, joint swelling, calf tenderness Neurological exam: Present: alert, oriented X3, CN II-XII intact Skin exam: Present: warm, dry, intact, normal color. Absent: rash Course Vital Signs 01/31/24 01/31/24 01/31/24 00:06 01:11 02:00 Temperature 98.0 F 98.6 F Pulse Rate 79 79 74 Respiratory 18 20 20 Rate Blood Pressure 154/78 150/76 136/84 O2 Sat by Pulse 99 96 95 Oximetry 01/31/24 02:32 Temperature Pulse Rate 81 Respiratory 14 Rate Blood Pressure 136/84 O2 Sat by Pulse 95 Oximetry Medical Decision Making - Medical Decision Making Was pt. sent in by a medical professional or institution (RADHA Myrick, SKILLED TRADES TEACHER, urgent care, hospital, or shelter...) When possible be specific @ -No Did you speak to anyone other than the patient for history (EMS, parent, family, police, friend...)? What history was obtained from this source @ -No Did you review nursing and triage notes (agree or disagree)? Why? @ -I reviewed and agree with nursing and triage notes Were old charts reviewed (outside hosp., previous admission, EMS record, old EKG, old radiological studies, urgent care reports/EKG's, shelter records)? Report findings @ -I reviewed like your medical center ER visit from 01-30-2024. Patient received p.o. Centerview and Fentanyl 50 mcg injection for pain control. X-rays c ompleted at that time showed soft tissue edema with no evidence of acute fractures or radiopaque foreign bodies. Differential Diagnosis (chest pain, altered mental status, abdominal pain women, abdominal pain men, vaginal bleeding, weakness, fever, dyspnea, syncope, headache, dizziness, GI bleed, back pain, seizure, CVA, palpatations, mental health, musculoskeletal)? @ -Differential Musculoskeletal: Muscular strain, contusion, ligament sprain, fracture, arthritis, septic arthritis, bursitis, cellulitis, muscle spasm, nerve compression, DVT, arterial occlusion, herpes zoster, electrolyte abnormality, tumor.... This is not meant to be in all inclusive list EKG interpreted by me (3pts min.). @ -None done X-rays interpreted by me (1pt min.). @ -None done CT interpreted by me (1pt min.). @ -None done U/S interpreted by me (1pt. min.). @ -None done What testing was considered but not performed or refused? (CT, X-rays, U/S, labs)? Why? @ -None What meds were considered but not given or refused? Why? @ -None Did you discuss the management of the patient with other professionals (professionals i.e. RADHA Myrick, SKILLED TRADES TEACHER, lab, RT, psych nurse, social media analyst, edger runner, teacher, credit compliance officer, keycase assembler)? Give summary @ -No Was smoking cessation discussed for >3mins.? @ -No Was critical care preformed (if so, how long)? @ -No Were there social determinants of health that impacted care today? How? (Homelessness, low income, unemployed, alcoholism, drug addiction, transportation, low edu. Level, literacy, decrease access to med. care, halfway, rehab)? @ -No Was there de-escalation of care discussed even if they declined (Discuss DNR or withdrawal of care, Hospice)? DNR status @ -No What co-morbidities impacted this encounter? (DM, HTN, Smoking, COPD, CAD, Cancer, CVA, ARF, Chemo, Hep., AIDS, mental health diagnosis, sleep apnea, morbid obesity)? @ -None Was patient admitted / discharged? Hospital course, mention meds given and route, prescriptions, significant lab abnormalities, going to OR and other pertinent info. @ -58-year-old female presented to ER with a chief complaint of left hand pain status post carpal tunnel release on 01-27-[address] Wu. Patient transferred here by [facility] for further evaluation. Patient no signs of acute distress nontoxic-appearing. History and physical exam completed. Vitals stable. Patient in no signs of acute distress nontoxic-appearing. Left upper extremity neurovascular intact. There is significant bruising to hand and proximal 3/4 left forearm. Patient has full range of motion. 1 cm surgical incision to anterior aspect there is no surrounding erythema or purulent drainage present. Chart reviewed from [facility] completed same day. X-rays negative. Patient will receive symptomatic control in the ER with IM Dilaudid. Upon reevaluation, patient resting company in exam room no signs of acute distress. Patient reports great improvement of pain. Bruising believed to be due to patient taking Xarelto. Patient stable for discharge at this time. Tylenol 3 starter pack given. Advise close follow-up with Dr. Wu. Strict return parameters discussed. Patient discharged in stable condition with follow-up to Dr. Wu. Patient verbally expressed understanding and agreement with care plan. Case discussed with ED attending, Dr. Fischer. Undiagnosed new problem with uncertain prognosis? @ -No Drug Therapy requiring intensive monitoring for toxicity (Heparin, Nitro, Insulin, Cardizem)? @ -No Were any procedures done? @ -No Diagnosis/symptom? @ -Postoperative pain status post carpal tunnel release Acute, or Chronic, or Acute on Chronic? @ -Acute Uncomplicated (without systemic symptoms) or Complicated (systemic symptoms)? @ -Uncomplicated Side effects of treatment? @ -No Exacerbation, Progression, or Severe Exacerbation? @ -No Poses a threat to life or bodily function? How? (Chest pain, [place], MA, pneumonia, PE, COPD, DKA, ARF, appy, cholecystitis, CVA, Diverticulitis, Homicidal, Suicidal, threat to staff... and all critical care pts) @ -No - Lab Data Lab Results 01/31/24 Range/Units 02:28 POC Glucose (mg/dL) 184 H (70-110) mg/dL POC Glu Wafer Cutter ID [place] Disposition Clinical Impression: Postoperative pain, Contusion Disposition: HOME SELF-CARE Condition: Stable Instructions (If sedation given, give patient instructions): Carpal Tunnel Surgery (DC) Additional Instructions: Continue taking pnye-[id number] medications for pain control. Follow-up with Dr. Wu next week. Return to the ER for any new or worsening concerns. Is patient prescribed a controlled substance at d/c from ED?: No Referrals: Lawson River MD [Primary Care Provider] - 1-2 days Zee Wu DO [Doctor of Osteopathic Medicine] - 1-2 days Time of Disposition: 03:03
[2024-01-31] MEDS: HYDROmorphone 1 MG/ML 1 ML SYRINGE IM STA (01:17)
[2024-01-31 02:29] LABS: Glucose,Whole Blood 184 mg/dL (70-110)
[2024-01-31 02:32] VITALS: BP 136/84; TEMP 98.6
[2024-01-31 02:35] VITALS: PULSE 81; RESP 14
[2024-01-31] MEDS: ACET/COD 300 MG/30 MG STARTER PACK 6 TAB BTL PO STA (03:24)
== END 2024-01-31 03:31 | disposition home or self-care (01) ==
LOC: EC 00:04
DX: S50.12XA Contusion of left forearm, initial encounter (principal); G89.18 Other acute postprocedural pain; Z87.891 Personal history of nicotine dependence; Z88.6 Allergy status to analgesic agent; Z88.0 Allergy status to penicillin; Z88.1 Allergy status to other antibiotic agents; X58.XXXA Exposure to other specified factors, initial encounter
CPT/HCPCS: 36415; 99283; 96372; J1171

== ENCOUNTER → 2024-07-06 | Outpatient (CLI) | payer MEDICARE, OTHER ==
[2024-07-06 20:03] LABS: ALT 24 U/L (8-44); AST 23 U/L (13-35); Albumin/Globulin Ratio 1.43 Ratio (1.60-3.17); Alkaline Phosphatase 130 U/L (41-126); BUN/Creat Ratio 18.12 Ratio (12.00-20.00); Blood Urea Nitrogen 14.5 mg/dL (9.0-27.0); Calcium 9.2 mg/dL (8.7-10.3); Carbon Dioxide 26.1 mmol/L (21.6-31.8); Chloride 106 mmol/L (96-109); Chol/HDL Ratio 5.56 Ratio; Globulin 2.8 g/dL (1.6-3.3); Glucose 172 mg/dL (70-110); LDL Cholesterol,Calculated 102.9 mg/dL (0.0-131.0); Potassium 4.3 mmol/L (3.5-5.5); Sodium 143 mmol/L (135-145); Total Bilirubin 0.3 mg/dL (0.3-1.2); Total Protein 6.8 g/dL (6.2-8.2)
== END | disposition home or self-care (01) ==
LOC: LABWHC1 12:12
DX: E78.2 Mixed hyperlipidemia (principal); E11.42 Type 2 diabetes mellitus with diabetic polyneuropathy
CPT/HCPCS: 36415; 80053; 80061; 82043; 82570

== ENCOUNTER → 2024-07-20 | Outpatient (CLI) | payer MEDICARE, OTHER ==
--- NOTE | 2024-07-25 21:00 | P.PCN ---
Date of Procedure: 07/20/24 Operative Findings: Home sleep study testing Date of service is 07/20/2024 History This is a 59-year-old female patient, morbidly obese with a previous gastric bypass surgery who carries a body mass index of 39. The patient also has cardiomyopathy, severe with an ejection fraction of 20%, moderate aortic valve regurgitation, hypertension, hyperlipidemia, diabetes mellitus type 2, nonocclusive coronary artery disease and chronic atrial fibrillation. The patient has undergone previous ablation and current rhythm is sinus. Patient is being contemplated for further upgrade to an AICD. The patient was given a home sleep study to evaluate for underlying obstructive sleep apnea. Pertinent physical findings Body mass index is 39.3, weight is 236 pounds Technical description The [employer] Apnea[employer] system was used to complete his home sleep study. This is a type III of sleep study evaluation. The total recording duration was 7 hours and 32 minutes. The study started at 11:45 PM and ended at 7:17 AM. There was a total of 7 hours and 20 minutes of flow monitoring and 7 hours and 10 minutes of oxygen saturation monitoring. Results Respiratory analysis showed a total of 21 obstructive apneas and 265 obstructive hypopneas. The resulting AHI was 39 consistent with severe obstructive sleep a pnea. No central apneas were noted. Oxygenation analysis The baseline pulse ox while awake was 95%. Average pulse ox during sleep was 92%. Lowest oxygen saturation was 76% during sleep. The patient spent approximately 28 minutes of sleep time below pulse ox of 89% Cardiac summary Average heart rate was 72 with a minimum heart of 56 and maximal heart rate of 135 Assessment Severe symptomatic GARRISON with an AHI of 39 Mild nocturnal oxygen desaturation with a minimum pulse ox of 76% during sleep Loud snoring Obesity with a BMI of 39.3 Cardiomyopathy with impaired LV function History of paroxysmal atrial fibrillation post ablation, currently in sinus Nonocclusive coronary artery disease Hypertension Hyperlipidemia Valvular heart disease with moderate degree of aortic valve regurgitation Diabetes mellitus type 2 Peripheral neuropathy Degenerative disc disease Plan Encourage weight loss Optimize comorbidities Maintain regular sleep schedule Sleep on the side and continue to optimize sleep hygiene measures Recommend CPAP therapy for severe symptomatic obstructive sleep apnea. The patient based on her comorbidities will be asked to come into the sleep center to undergo an in lab CPAP titration. Will continue to follow.
== END ==
LOC: 3 N SLEEP 16:54
PROVIDERS: ATTEND Internal Medicine Critical Care Medicine
DX: G47.33 Obstructive sleep apnea (adult) (pediatric) (principal); E66.9 Obesity, unspecified; E11.42 Type 2 diabetes mellitus with diabetic polyneuropathy; E78.5 Hyperlipidemia, unspecified; I10 Essential (primary) hypertension; I25.10 Atherosclerotic heart disease of native coronary artery without angina pectoris; I35.1 Nonrheumatic aortic (valve) insufficiency; I42.9 Cardiomyopathy, unspecified; I48.0 Paroxysmal atrial fibrillation; I48.20 Chronic atrial fibrillation, unspecified; I38 Endocarditis, valve unspecified; M51.369 Other intervertebral disc degeneration, lumbar region without mention of lumbar back pain or lower extremity pain; Z98.84 Bariatric surgery status; Z68.39 Body mass index [BMI] 39.0-39.9, adult; Z87.891 Personal history of nicotine dependence; Z88.0 Allergy status to penicillin; Z88.1 Allergy status to other antibiotic agents; Z88.6 Allergy status to analgesic agent

== ENCOUNTER → 2024-09-14 | Outpatient (CLI) | payer MEDICARE, OTHER ==
[2024-09-14 15:26] LABS: Blood Urea Nitrogen 17.3 mg/dL (9.0-27.0)
[2024-09-14 15:27] LABS: Anion Gap 13.40 mmol/L (4.00-12.00); Carbon Dioxide 25.6 mmol/L (21.6-31.8); Chloride 107 mmol/L (96-109); Potassium 3.9 mmol/L (3.5-5.5); Sodium 146 mmol/L (135-145)
[2024-09-14 15:41] LABS: HCT 43.1 % (37.2-46.3); HGB 12.9 g/dL (12.0-15.0); MCH 26.8 pg (27.0-32.0); MCHC 29.9 g/dL (32.0-37.0); MCV 89.4 FL (80.0-97.0); NRBC Per 100 WBC 0 X 10*3/uL (0.00-0.01); Platelet Count 263 X 10*3/uL (140-440); RBC 4.82 X 10*6/uL (4.10-5.20); RDW 15.7 % (11.5-14.5); WBC 8.80 X 10*3/uL (4.50-10.00)
== END | disposition home or self-care (01) ==
LOC: LABWHC1 12:12
PROVIDERS: ATTEND Internal Medicine Clinical Cardiac Electrophysiology
DX: Z01.812 Encounter for preprocedural laboratory examination (principal); I42.8 Other cardiomyopathies; I44.7 Left bundle-branch block, unspecified; I48.0 Paroxysmal atrial fibrillation
CPT/HCPCS: 36415; 80051; 82565; 84520; 85027

== ENCOUNTER 2024-09-16 11:11 | Day surgery (SDC) | payer MEDICARE, OTHER ==
[~2024-09-16 11:11] MED LIST changes: -DEXTROSE 50% SYRINGE 50 ML IVP ONE; -GLUCAGON 1 MG/ML VIAL ONE; -LACTATED RINGERS 1,000 ML IV SCH; -LIDOCAINE 1% (10MG/ML) FOR IV START INTRADERMA ONE; -PROPOFOL 10 MG/ML 20 ML VIAL IV ONE; +ceFAZolin 1 GM in SODIUM CHLORIDE 0.9% IRRIG BTL 250 ML IRRIGATION PRN
[2024-09-16] MEDS: IV FLUID CONTINUATION 1,000 ML IV ONE (11:54)
[2024-09-16 12:10] LABS: Glucose,Whole Blood 175 mg/dL (70-110)
[2024-09-16] MEDS: SODIUM CHLORIDE 0.9% 1,000 ML IV SCH (12:11)
[2024-09-16] MEDS ORDERED: MIDAZOLAM 2 MG/2 ML VIAL ONE (14:30)
[2024-09-16] MEDS ORDERED: fentaNYL (PF) 50 MCG/ML 2 ML AMP ONE (14:30)
[2024-09-16] MEDS ORDERED: KETAMINE HCL IN 0.9 % NACL 50 MG/5 ML SYRINGE ONE (14:30)
[2024-09-16] MEDS ORDERED: diphenhydrAMINE 50 MG/ML 1 ML VIAL ONE (14:30)
[2024-09-16] MEDS: IOPAMIDOL-370 100ML BTL INJ ONE (15:05)
[2024-09-16] MEDS: ROPIVACAINE 5 MG/ML 30 ML VIAL MISCELLANE ONE (15:28)
[2024-09-16] MEDS: LIDOCAINE 1% INJ 10MG/ML (20 ML MDV) SQ ONE (15:28)
--- NOTE | 2024-09-16 18:14 | P.EPPROC ---
- EP Procedure Note Electrophysiology Procedure Note: Diagnosis Cardiomyopathy, chronic, nonischemic in nature, likely related to left bundle branch block Left bundle branch block morphology, QRS width greater than 183 ms Congestive heart failure [place] Heart Association class 2 On guide line directed medical treatment for greater than 3 months History of atrial fibrillation status post successful ablation in the past Procedure: Biventricular ICD implantation for management of risk of sudden cardiac and congestive heart failure Result: Successful biventricular ICD implantation, Atrial lead: Medtronic atrial lead screwed in right atrial appendage, Medtronic model 5076. P waves 1.6 mV, pacing impedance 399 ohms, pacing threshold 0.75 V at 0.4 ms RV ICD lead: Pacing impedance 494 ohms, high-voltage impedance 72 ohms and pacing threshold 0.75 V at 0.4 ms, excellent sensing when initially implanted LB lead: Pacing impedance 532 ohms, pacing threshold 0.25 V at 0.4 ms Time to peak activation about 80-84 ms Intrinsic right bundle beat showed an activation time of 60 ms Procedure details: Patient was brought to the EP lab in a fasting state. Written informed consent was obtained prior to the procedure. Options, pros and cons, benefits and risks and complications discussed with patient in detail prior to the procedure (shared decision making) previously. Importance of continuing medical treatment emphasized previously. Alternatives discussed previously. Left upper extremity venogram performed. 15 mL IV dye injected in the left arm. Patent axillary/subclavian vein The left pectoral area was prepped and draped as a protocol. IV antibiotics administered 1% lidocaine was used for local anesthesia. A 4 cm incision was made parallel to the deltopectoral groove, about 1.5 cm medial to it. The incision was carried down to the level of the pectoralis muscle and the subfascial pocket was made. Hemostasis was assured. The axillary vein access was obtained. Appropriately sized into to see sheaths were placed. ICD lead implanted in the right ventricle and screwed in. ICD lead tested for threshold, sensing, impedances and tested with high output pacing for diaphragmatic stimulation. Negative diaphragmatic stimulation Atrial lead placed in the right atrial appendage and tested for threshold, sensing, impedance, and tested with high output pacing. Phrenic nerve stimulation negative Conduction system pacing lead placement in the left bundle area with excellent thresholds Leads secured to the underlying pectoral muscle after removing sheaths . Pocket irrigated with antibiotic solution. Antibiotic pouch placed Leads connected to the biventricular ICD generator. Wound closed in 3 layers and dressed per protocol Biventricular ICD interrogated and programmed. Appropriate pacing parameters, antitachycardia therapies with antitachycardia pacing cardioversion defibrillations programmed. AV delay and biventricular pacing parameters programmed to achieve optimal physiologic pacing LV RV offset of 80 ms to promote left bundle area pacing Patient tolerated the procedure well without any acute complications. See scanned device report in EMR for lead details
[2024-09-16] MEDS: traMADol 50 MG TAB PO PRN (19:15)
[2024-09-16] MEDS: ACETAMINOPHEN TAB 325 MG TAB PO PRN (19:15)
[2024-09-16 20:31] LABS: Glucose,Whole Blood 266 mg/dL (70-110)
[2024-09-16] MEDS: INSULIN LISPRO (For Pump) 100 UNIT/ML VIAL SQ-PUMP SCH (21:25)
[2024-09-16] MEDS: SACUBITRIL/VALSARTAN 49 MG-51 MG TABLET PO SCH (21:26)
[2024-09-16] MEDS: PANTOPRAZOLE 40 MG TABLET PO SCH (21:27)
[2024-09-16] MEDS: PREGABALIN 100 MG CAP PO SCH (21:27)
[2024-09-16] MEDS: ATORVASTATIN 40 MG TAB PO SCH (21:27)
[2024-09-16] MEDS ORDERED: DEXTROSE 50% SYRINGE 50 ML IVP PRN ×2 (23:02)
[2024-09-17 06:43] LABS: Glucose,Whole Blood 246 mg/dL (70-110)
[2024-09-17] MEDS: INSULIN LISPRO (HumaLOG) 100 UNIT/ML 10 mL VL SQ SCH (06:57)
[2024-09-17 07:46] VITALS: BP 129/75; PULSE 66; RESP 17; TEMP 97.6
--- NOTE | 2024-09-17 08:18 | XR ---
EXAMINATION TYPE: XR chest 2V DATE OF EXAM: 09/17/2024 8:10 AM COMPARISON: Chest radiographs from 12/24/2023 TECHNIQUE: XR chest 2V Frontal and lateral views of the chest. CLINICAL INDICATION:Female, 59 years old with history of Lead placement check; FINDINGS: Lungs/Pleura: There is no evidence of pleural effusion, focal consolidation, or pneumothorax. Pulmonary vascularity: Unremarkable. Heart/mediastinum: Cardiomediastinal silhouette is enlarged. Atherosclerotic calcifications are seen in the aorta. Three lead cardiac conduction device overlying the left hemithorax with lead tips proj ecting over the right ventricle, right atrium and coronary sinus. Musculoskeletal: No acute osseous pathology. IMPRESSION: Cardiomegaly with interval placement of three lead cardiac conduction device overlying the left hemit horax with lead tips projecting over the right ventricle, right atrium and coronary sinus. [facility], , 09/17/2024 8:15 AM
[2024-09-17] MEDS: DAPAGLIFLOZIN PROPANEDIOL 5 MG TABLET PO SCH (08:28)
[2024-09-17] MEDS: METOPROLOL SUCCINATE (ER) 100 MG TAB.ER.24H PO SCH (08:28)
[2024-09-17] MEDS: SPIRONOLACTONE 25 MG TAB PO SCH (08:29)
[2024-09-17] MEDS: FUROSEMIDE 20 MG TAB PO SCH (08:29)
[2024-09-17] MEDS: CITALOPRAM HYDROBROMIDE 10 MG TAB PO SCH (08:29)
[2024-09-17] MEDS: ASPIRIN 81 MG PO SCH (08:40)
[2024-09-17] MEDS: SODIUM CHLORIDE 0.9% 1,000 ML IV SCH (08:48)
[2024-09-17] MEDS ORDERED: ISOSORBIDE MONONITRATE ER 30 MG TAB.ER.24H PO SCH (09:00)
--- NOTE | 2024-09-17 11:15 | P.DS ---
Providers Expected date of discharge: 09/17/24 Attending physician: Titus Cline Primary care physician: [facility] Course: This is a 59-year-old female brought into the hospital under the care of Dr. Cline and is status post biventricular ICD implantation for management of risk for sudden cardiac and congestive heart failure. Patient has had no postprocedure complications. Patient's device has been checked this morning. Chest x-ray reviewed. Blood pressure 129/75, heart rate in the 60s. Beta- demond will be increased. Physical examination: Gen: This is a 59-year-old female in no acute distress VS: reviewed LUNGS: Clear to auscultation. No wheezes or rhonchi. No intercostal retractions. HEART: Regular rate and rhythm. ABDOMEN: Soft No tenderness. EXTREMITIES: No pedal edema. No calf tenderness. NEUROLOGICAL: Patient is awake, alert and oriented x3. Assessment: Cardiomyopathy, nonischemic, likely related to left bundle branch block Left bundle branch block morphology, QRS with greater than 183 MS Congestive heart failure [place] [employer] class II Patient has been on guideline directed medical treatment for greater than 3 months History of atrial fibrillation status post successful ablation in the past Plan: Patient will be discharged home today in stable condition Beta-demond increased. Metoprolol succinate 150 mg in the morning with the addition of 50 mg in the evening Discontinue Imdur Follow-up with Dr. Cline Nurse practitioner note has been reviewed, I agree with documented findings and plan of care. Patient was seen and examined. Patient Condition at Discharge: Fair Plan - Discharge Summary Discharge Rx Participant: No New Discharge Prescriptions: New Metoprolol Succinate (ER) [Toprol XL] 50 mg PO HS #90 tab Continue Pantoprazole Sodium [Protonix] 40 mg PO BID Sucralfate [Carafate] 1 gm PO DAILY Fluticasone Nasal [place] [Flonase Nasal [place]] 2 spray EA NOSTRIL DAILY PRN PRN Reason: Congestion Nitroglycerin Sl Tabs [Nitrostat] 0.4 mg SUBLINGUAL Q5M PRN #30 tab PRN Reason: Chest Pain Aspirin 81 mg PO QAM Atorvastatin [Lipitor] 40 mg PO HS Furosemide [Lasix] 40 mg PO DAILY Cetirizine HCl 10 mg PO QAM Rivaroxaban [Xarelto] 20 mg PO AC-SUPPER methocarbamoL 750 mg PO Q4H PRN PRN Reason: muscle relaxant Empagliflozin [Jardiance] 10 mg PO DAILY traMADol HCL 50 mg PO Q6H PRN PRN Reason: Pain Cholecalciferol (Vitamin D3) [Vitamin D3 (50 Mcg = 2000 Iu) Chew Tab] 2,000 unit PO DAILY #0 Sacubitril/Valsartan [Entresto 49 mg-51 mg Tablet] 1 each PO BID Citalopram Hydrobromide [CeleXA] 10 mg PO DAILY Spironolactone 25 mg PO DAILY #90 tablet Acetaminophen Tab [Tylenol] 650 mg PO Q4H PRN PRN Reason: Pain Pregabalin [Lyrica] 100 mg PO BID Metoprolol Succinate (ER) [Toprol XL] 150 mg PO DAILY INSULIN LISPRO (For Pump) [humaLOG (For Pump)] 0.01 units SQ-PUMP CONTINUOUS Discontinued Isosorbide Mononitrate ER [Imdur] 30 mg PO DAILY #0 Discharge Medication List Pantoprazole Sodium [Protonix] 40 mg PO BID 10/02/15 [History] Sucralfate [Carafate] 1 gm PO DAILY 11/05/15 [History] Fluticasone Nasal [place] [Flonase Nasal [place]] 2 spray EA NOSTRIL DAILY PRN 01/03/16 [History] Nitroglycerin Sl Tabs [Nitrostat] 0.4 mg SUBLINGUAL Q5M PRN #30 tab 07/02/17 [Rx] Aspirin 81 mg PO QAM 11/02/19 [History] Atorvastatin [Lipitor] 40 mg PO HS 11/02/19 [History] Cetirizine HCl 10 mg PO QAM 11/02/19 [History] Furosemide [Lasix] 40 mg PO DAILY 11/02/19 [History] Rivaroxaban [Xarelto] 20 mg PO AC-SUPPER 11/02/19 [History] Pregabalin [Lyrica] 100 mg PO BID 05/09/22 [History] Cholecalciferol (Vitamin D3) [Vitamin D3 (50 Mcg = 2000 Iu) Chew Tab] 2,000 unit PO DAILY #0 12/18/23 [History] Empagliflozin [Jardiance] 10 mg PO DAILY 12/18/23 [History] methocarbamoL 750 mg PO Q4H PRN 12/18/23 [History] traMADol HCL 50 mg PO Q6H PRN 12/18/23 [History] Citalopram Hydrobromide [CeleXA] 10 mg PO DAILY 07/27/24 [History] INSULIN LISPRO (For Pump) [humaLOG (For Pump)] 0.01 units SQ-PUMP CONTINUOUS 07/27/24 [History] Metoprolol Succinate (ER) [Toprol XL] 150 mg PO DAILY 07/27/24 [History] Sacubitril/Valsartan [Entresto 49 mg-51 mg Tablet] 1 each PO BID 07/27/24 [History] Spironolactone 25 mg PO DAILY #90 tablet 07/29/24 [Rx] Acetaminophen Tab [Tylenol] 650 mg PO Q4H PRN 09/14/24 [History] Metoprolol Succinate (ER) [Toprol XL] 50 mg PO HS #90 tab 09/17/24 [Rx] Follow up Appointment(s)/Referral(s): Titus Cline MD [STAFF PHYSICIAN] - 09/23/24 4:00 pm (FOLLOW UP APPOINTMENT MADE WITH DEVICE CLINIC) Patient Instructions/Handouts: Implantable Cardioverter Defibrillator (DC) Activity/Diet/Wound Care/Special Instructions: PATIENT EDUCATION MATERIAL Instructions following a heart rhythm device implant. 1. Keep dressing DRY for 5 DAYS. You may cover the area with Saran or Cling Wrap, prior to a shower. 2. The dressing will be removed in the Device Clinic at [facility]. Absorbable sutures were used to close the wound. 3. Avoid raising the left arm above the shoulder level. 4 week restriction 4. Avoid arm movements, like backscratching, rubbing the head, or pulling on a cord. 4 weeks restriction 5. Gentle range of motion movements of the shoulder, closest to the incision should be performed to avoid a frozen shoulder. (Pendulum exercises of the shoulder) 6. The opposite arm may be used freely. 7. Avoid driving for 7 days. 8. Avoid activities such as golfing, swimming, weed whacking, lifting more than 10 pounds weight, bowling, gymnastics and weight training/lifting. (6 weeks restriction) 9. Activities such as wood chopping with an axe, pull-ups in the gymnasium, power lifting, arc-welding, being close to home induction cooktops will always be a problem. 10. Arm sling is only a reminder not to raise the arm above the head. You do not need to keep the arm completely immobilized. Your free to move the arm and use it and for normal activities. In case of any problems, please call [facility], [place], @ [phone], Attention: Device Clinic Device clinic follow-up in 5 days Follow-up with primary barmaid in 2-3 months Discharge Disposition: HOME SELF-CARE
[2024-09-17] MEDS ORDERED: RIVAROXABAN 20 MG TAB PO SCH (17:30)
[2024-09-17] MEDS ORDERED: METOPROLOL SUCCINATE (ER) 50 MG TAB.ER.24H PO SCH (21:00)
== END 2024-09-17 10:33 | disposition home or self-care (01) ==
LOC: CATHEP 11:11 → 6NMEDSUR 17:45 → CATHEP 09-17 10:33
PROVIDERS: ATTEND Internal Medicine Clinical Cardiac Electrophysiology
DX: Z45.02 Encounter for adjustment and management of automatic implantable cardiac defibrillator (principal); I11.0 Hypertensive heart disease with heart failure; I50.22 Chronic systolic (congestive) heart failure; I44.7 Left bundle-branch block, unspecified; I42.8 Other cardiomyopathies; I48.91 Unspecified atrial fibrillation; Z79.01 Long term (current) use of anticoagulants; Z79.84 Long term (current) use of oral hypoglycemic drugs; Z79.899 Other long term (current) drug therapy; Z88.0 Allergy status to penicillin; Z88.1 Allergy status to other antibiotic agents; Z79.4 Long term (current) use of insulin
CPT/HCPCS: 33249; 71046; C1769 ×2; C1892 ×2; C1730; C1887; C1898; C1895; C1882; J2250; J1200; J0690; J2003; J3010; J2795; Q9967